=== PATIENT | male | born 2000 | race Caucasian/White ===

== ENCOUNTER 2020-08-05 11:08 | Outpatient (REF) | payer BC, SELFPAY | END 2020-08-05 11:09 | disposition home or self-care (01) | LOC: HO.HMGCLDS 11:08 | PROVIDERS: Visit Provider Internal Medicine | DX: Z20.828 Contact with and (suspected) exposure to other viral communicable diseases (principal) | CPT/HCPCS: C9803; U0003 ==

== ENCOUNTER 2020-08-10 08:27 | Outpatient (REF) | payer BC, SELFPAY | END 2020-08-10 08:28 | disposition home or self-care (01) | LOC: HO.HMGCLDS 08:27 | PROVIDERS: Visit Provider Internal Medicine | DX: Z20.828 Contact with and (suspected) exposure to other viral communicable diseases (principal) | CPT/HCPCS: C9803; U0003 ==

== ENCOUNTER 2024-03-26 08:51 | Outpatient (AMB) | payer OTHER, SELFPAY ==
--- NOTE | 2024-03-26 09:36 | MHC.OFFWIV ---
Intake Vital Signs 03/26/24 09:40 Height 5 ft 6 in Weight 181 lb BMI 29.2 BP 122/84 Blood Pressure Location Lt brachial Position Sitting Pulse 79 Pulse Source Pulse Oximeter Temp 98.3 F Temp Source Oral Pulse Oximetry (%) 99 Oxygen Delivery Method Room Air Intake Visit Reasons: Swollen lymph nodes Intake Note: pt here c/o ? swollen lymph nodes in groin. Alternating discomfort Patient Tobacco Use Status: Never used Tobacco Allergies amoxicillin [AMOXICILLIN] Allergy (Unknown, Verified 03/26/24 09:36) HIVES azithromycin [From ZITHROMAX] Allergy (Unknown, Verified 03/26/24 09:36) HIVES penicillin V Allergy (Unknown, Verified 03/26/24 09:36) Hives Penicillins [PENICILLINS] Allergy (Unknown, Verified 03/26/24 09:36) HIVES Do you need a note to return to daycare/school/sports/work: No HPI HPI Comments History of Present Illness Details Patient is a 24-year-old male with several complaints. First he has several swollen lymph nodes that he is concerned about. His 1st one is just beneath his ear on the left side of his neck, he states he just noticed it the other day. He states he believes he had 1 on the right lower neck that has since improved but he thinks he has 1 on the left lower neck but he can not find it right now. He also says he has lymph node swelling in his groin that he noticed about a month ago. He has a new sexual partner as of 3 months ago and states he did have some urinary symptoms about a month ago of increased urination. He never sought any medical treatment at that time and he states that was feeling a little bit better. However, he does not endorse some abdominal discomfort. He denies any unusual discharge from his penis, fevers or burning with urination. PFSH Social History Patient Tobacco Use Status: Never used Tobacco Review of Systems Const All systems reviewed & are unremarkable except as noted in HPI and below Physical Exam Vital Signs: Last Vital Signs Temp 98.3 F 03/26/24 09:40 Pulse 79 03/26/24 09:40 BP 122/84 03/26/24 09:40 Pulse Ox 99 03/26/24 09:40 Oxygen Delivery Method Room Air 03/26/24 09:40 BMI result Body Mass Index 29.2 Const General: cooperative, healthy appearing, comfortable, no acute distress and well developed Orientation/consciousness: patient oriented x3 Limitations: no limitations HEENT Head: Yes normal to inspection Eyes General: appearance normal, both eyes and all related structures Neck Neck: Yes normal visual inspection, Yes full ROM, Yes trachea midline and Yes supple Lymphatic: lymphadenopathy left postauricular Resp Effort & Inspection: normal respiratory effort and able to speak in complete sentences Male General Exam: Yes inguinal lymphadenopathy bilateral Skin General skin exam: no rashes or lesions noted Neuro General: patient oriented x3 Extrem General: Yes normal to inspection Results AMB Urinalysis, Automated UA Leukoctes 0 James/uL Last Edit by Renato Angulo CMA on 03/26/24 10:21 UA Nitrite Negative Last Edit by Renato Angulo CMA on 03/26/24 10:21 UA Urobilinogen 0.2 mg/dL Last Edit by Renato Angulo CMA on 03/26/24 10:21 UA Protein 0 mg/dL Last Edit by Renato Angulo CMA on 03/26/24 10:21 UA pH 6.0 Last Edit by Renato Angulo CMA on 03/26/24 10:21 UA Blood 0 Yohannes/uL Last Edit by Renato Angulo CMA on 03/26/24 10:21 UA Specific [place] 1.015 Last Edit by Renato Angulo CMA on 03/26/24 10:21 UA Ketone Last Edit by Renato Angulo CMA on 03/26/24 10:21 UA Bilirubin 0 mg/dL Last Edit by Renato Angulo CMA on 03/26/24 10:21 UA Glucose 0 mg/dL Last Edit by Renato Angulo CMA on 03/26/24 10:21 Results Reviewed Results Reviewed: Laboratory Last Values Urine pH (Auto) 6.0 03/26/24 10:18 Specific [place] (Auto) 1.015 03/26/24 10:18 Urine Protein (Auto) 0 mg/dL 03/26/24 10:18 Glucose (UA)(Auto) 0 mg/dL 03/26/24 10:18 Urine Blood (Auto) 0 Yohannes/uL 03/26/24 10:18 Urine Nitrite (Auto) Negative 03/26/24 10:18 Urine Bilirubin (Auto) 0 mg/dL 03/26/24 10:18 Urine Urobilinogen (Auto) 0.2 mg/dL 03/26/24 10:18 Leukocyte Esterase (Auto) 0 James/uL 03/26/24 10:18 Assessment & Plan Assessment & Plan (1) Abdominal discomfort: Code(s): R10.9 - Unspecified abdominal pain Plan: UA is negative, CT NG sent to lab. Explained to patient if those are positive, we will send a prescription to his pharmacy. Explained that he needs to abstain from sexual activity until he has finished the prescription and comes back for a 2nd test to show that he has cleared the disease and he should also have his partner tested and treated as well. (2) Increased frequency of urination: Code(s): R35.0 - Frequency of micturition Plan: UA negative for infection (3) Swollen lymph nodes: Code(s): R59.9 - Enlarged lymph nodes, unspecified Plan: Physical exam revealed bilateral inguinal lymphadenopathy as well as left-sided cervical lymphadenopathy. Sent CT NG PCR. Explained to patient that if he does have an infection either urinary tract infection or a sexually transmitted infection, the lymph node swelling should go down once the infection resolves. If it does not go down after a weeks, he should follow up with his PCP. If the lymph node swelling in his neck does not go down within the next week or 2, he should follow up with his PCP for an ultrasound ADELINE. Patient states he does have a PCP appointment in July, however he would need to be seen prior to July if the lymphadenopathy does not go away. Plan See above Orders: Orders CT NG by PCR Today R10.9 - Unspecified abdominal pain, R35.0 - Frequency of micturition, R59.9 - Enlarged lymph nodes, unspecified AMB Urinalysis Automated Today Z13.9 - Encounter for screening, unspecified Coding Level of Care Code Est Pt Level 4 (99085) Diagnoses Abdominal discomfort R10.9 Increased frequency of urination R35.0 Swollen lymph nodes R59.9
[2024-03-26 09:40] VITALS: BP 122/84; PULSE 79; TEMP 36.8; O2SAT 99; BMI 29.2
== END 2024-03-26 10:34 | disposition home or self-care (01) ==
PROVIDERS: Visit Provider Physician Assistant
DX: R10.9 Unspecified abdominal pain (principal); R35.0 Frequency of micturition; R59.9 Enlarged lymph nodes, unspecified; Z13.9 Encounter for screening, unspecified
CPT/HCPCS: 81003; 99214

== ENCOUNTER 2024-03-26 10:09 | Outpatient (REF) | payer OTHER, SELFPAY ==
[2024-03-26 16:22] LABS: CT PCR NOT DETECTED (Not Detect.); NG PCR NOT DETECTED (Not Detect.)
== END 2024-03-26 10:10 | disposition home or self-care (01) ==
LOC: HO.LAB 10:09
PROVIDERS: Visit Provider Physician Assistant
DX: R10.9 Unspecified abdominal pain (principal); R35.0 Frequency of micturition; R59.9 Enlarged lymph nodes, unspecified
CPT/HCPCS: 87491; 87591

== ENCOUNTER 2024-04-03 12:24 | Outpatient (AMB) | payer OTHER, SELFPAY ==
--- NOTE | 2024-04-03 12:41 | MHC.PC.OV ---
Vital Signs 04/03/24 12:42 Height 5 ft 6 in Weight 180 lb BMI 29.0 BP 108/68 Blood Pressure Location Lt brachial Position Sitting Pulse 71 Pulse Source Pulse Oximeter Pulse Oximetry (%) 98 Oxygen Delivery Method Room Air Intake Visit Reasons: Establish Care / Hospital discharge Intake Note: Patient here for HDF/establish care Allergies amoxicillin [AMOXICILLIN] Allergy (Unknown, Verified 04/03/24 13:08) HIVES azithromycin [From ZITHROMAX] Allergy (Unknown, Verified 04/03/24 13:08) HIVES penicillin V Allergy (Unknown, Verified 04/03/24 13:08) Hives Penicillins [PENICILLINS] Allergy (Unknown, Verified 04/03/24 13:08) HIVES Medication List - Last Reconciled 04/03/24 by MICHEAL Saeed methylphenidate HCl ER 18 mg PO QAM Tobacco use date assessed: 04/03/24 Dental Screening Dental Screen Date: 04/03/24 Did you have a dental visit in the last 12 months?: No Did you have a dental problem in the last 6 months where you did not have access to dental care?: No Was dental information given to patient?: Patient has dentist HPI HPI Comments History of Present Illness Details New patient visit today for hospital discharge follow up. Of note I did not have any of the hospital paperwork until after the visit. Previous PCP: [facility]; no records available Pharm: [facility] martha This is a 24-year-old male, with no significant medical history, who presented to [facility] on 04/01/2024 with abdominal pain, CT scan positive for acute appendicitis. He underwent a successful laparoscopic appendectomy on 04/02/2024. He was discharged home with oxycodone, Tylenol, ibuprofen and Colace. He had a CBC and BMP of which were within normal limits; specifically the CT scan states no enlarged lymph nodes in the pelvis. He also had a UA done which did show trace bacteria, otherwise unremarkable. He comes in today specifically to request syphilis and HIV testing. He reports that he was seen at the walk-in clinic at [facility] for chief complaints of adenopathy in his groin in his neck. At that time a urine was done which was negative as well as a urine for gonorrhea chlamydia. That was also negative. He denies any STD symptoms. When he went to the emergency room for the abdominal pain, there was a mention of meeting together syphilis and HIV workup. He has been perseverating on this with severe anxiety. He is in a new relationship, started dating a girl 3 months ago, she is now 2 months . He states she has not had her appointment yet. Be that as it may, he reports that she does not have any STD symptoms. He further denies he has no STD symptoms. He does not have sex with men. He does not use any IV drugs. Denies any high-risk exposures that would expose him to HIV. In regards to the lymphadenopathy, he reports that the lymph nodes in his groin have improved since the surgery, however continue. Reports that the lymph nodes in his neck have also improved. However he can continue to feel 1 on the left side of his neck, and 1 in the right supraclavicular area. Reports that they are soft, painless. Denies any fever, chills, constitutional symptoms. The only thing he is complaining of his grave anxiety related to the potential for HIV or syphilis certainly given the fact that he is going to become a father. Exam Awake alert, oriented, appears well, nontoxic No photophobia bilat Mucous membranes moist Neck full range of motion there was a very small deep posterior cervical lymph node on the left, and a barely palpable soft mobile lymph node right supraclavicular. Regular rate and rhythm Lung sounds clear to auscultation bilat Abdomen is soft, hypoactive bowel sounds, nontender, surgical incisions without drainage or erythema, open to air. Right inguinal area are very small shotty lymph nodes, no appreciable adenopathy on the left. exam deferred Severely anxious, shaking, restless, cooperative. Plan Check labs for HIV and syphilis today. Reassured. Also check a CBC. I do not think we need imaging of the neck lymph nodes at this time, the CT scan remarks specifically that there is no adenopathy. Therefore I do not think anything further needs to be done in regards to the inguinal adenopathy. This was likely reactive to the appendicitis. The patient does report that these are improving. I would like for him to come back in 1 week to establish care with his primary care and to further discuss the adenopathy, should this continue. He was advised to take NSAIDs to see if this would help relieve the adenopathy as well. If his testing comes back positive for syphilis or HIV, proper orders we will need to be placed at that time. At the close of this note the lab results are pending. This note is constructed using voice recognition software. While every effort has been made to ensure accuracy in business services manager, still errors may have been included Sometimes, these errors may affect the content or meaning of the given sentence . Total time spent caring for the patient today was 40 minutes. This includes time spent before the visit reviewing the chart, time spent during the visit, and time spent after the visit on documentation denies recent travel, fever, chills, urinary complaints PFSH Surgical History (Updated 04/03/24 @ 12:46 by MIHIR Jones) Hx of appendectomy Hx of hernia repair Social History Housing: House Patient Tobacco Use Status: Never used Tobacco e-Cigarette/Vaping Use: Former Use service: No Current occupational status: employed Current occupation: [employer] ([place]) Current occupational exposures/hazards: No Cognitive needs: No Hearing needs: No Vision needs: No Questionnaire PHQ-9 Over the last 2 weeks, how often have you been bothered by any of the following problems? 1. Little interest or pleasure in doing things: not at all 2. Feeling down, depressed, or hopeless: several days 3. Trouble falling or staying asleep, or sleeping too much: several days 4. Feeling tired or having little energy: several days 5. Poor appetite or overeating: more than half the days 6. Feeling bad about yourself - or that you are a failure or have let yourself or your family down: more than half the days 7. Trouble concentrating on things, such as reading the newspaper or watching television: several days 8. Moving or speaking so slowly that other people could have noticed. Or the opposite - being so fidgety or restless that you have been moving around a lot more than usual: more than half the days 9. Thoughts that you would be better off or of hurting yourself in some way: not at all Total score: 10 Depression Screening Interpretation: Positive Depression Screening Follow-up: Follow-up Visit Requested Depression Screening Done: Yes 96427 - PHQ-9 Billing: Yes Source: Developed by Drs. Billy Mckeon, Cynthia Scott Yap and colleagues, with an educational anish from [employer]. Thrive Questionnaire Date Thrive assessed: 04/03/24 I am a: Patient What is your living situation today?: I have a steady place to live Within the past 12 months, did the food you bought not last and you didn't have the money to get more?: Never true Within the past 12 months, did you worry whether your food would run out before you got money to buy more?: Never true Do you have trouble paying for medicines?: No Do you have trouble getting transportation to medical appointments?: No Do you have trouble paying your heating and electricity bill?: No Do you have trouble taking care of your child, family member or friend?: No Do you have trouble with day-to-day activities such as bathing, preparing meals, shopping, managing finances, etc.?: No Are you currently unemployed and looking for a job?: No Are you interested in more education?: No Please select the resources that you would like help with: None Currently or been in a relationship where the following occur: No concerns reported THRIVE Score: 0 AUDIT C Alcohol Use Questionnaire (AUDIT-C) 1. How often do you have a drink containing alcohol?: Monthly or less 2. How many drinks containing alcohol do you have on a typical day when you are drinking?: 7 to 9 3. How often do you have six or more drinks on one occasion?: Never Total Score: 4 Score Reviewed/Action Taken: Yes FRANTZ-7 AMB Questionnaire FRANTZ-7 Date FRANTZ - 7 assessed: 04/03/24 Feeling nervous, anxious, or on edge: 2 = More than half the days Not being able to stop or control worryin = More than half the days Worrying too much about different things: 2 = More than half the days Trouble relaxin = More than half the days Being so restless that it is hard to sit still: 1 = Several days Becoming easily annoyed or irritable: 0 = Not at all Feeling afraid as if something awful might happen: 3 = Nearly every day Total FRANTZ-7 score (0-4 normal; 5-9 mild; 10-14 moderate; 15-21 severe): 12 Source: Developed by Drs. Billy Mckeon, Scott Mota and colleagues, with an educational anish from [employer]. FRANTZ-7 Assessment Billing FRANTZ-7 Assessment Tool: FRANTZ-7 Assessment 50795 Physical exam (Primary Care) Vital Signs: Last Vital Signs Pulse 71 04/03/24 12:42 BP 108/68 04/03/24 12:42 Pulse Ox 98 04/03/24 12:42 Oxygen Delivery Method Room Air 04/03/24 12:42 BMI result Body Mass Index 29.0 Tobacco/Smoking Status: Tobacco use Status Tobacco use date assessed 04/03/24 04/03/24 12:48 Patient Tobacco Use Status Never used Tobacco 04/03/24 12:48 e-Cigarette/Vaping Use Former Use 04/03/24 12:48 PHQ-9: PHQ-9 Score PHQ-9: Total score 10 04/03/24 13:04 Depression Screening Interpretation: Positive Depression Screening Follow-up: Follow-up Visit Requested Thrive Assessment: Date of Thrive Assessment Date Thrive assessed 04/03/24 04/03/24 12:51 Currently or been in a relationship where the following occur: No concerns reported Assessment and Plan Assessment & Plan (1) Hospital discharge follow-up: Code(s): Z09 - Encounter for follow-up examination after completed treatment for conditions other than malignant neoplasm (2) Swollen lymph nodes: Code(s): R59.9 - Enlarged lymph nodes, unspecified (3) Encounter for screening examination for sexually transmitted disease: Code(s): Z11.3 - Encounter for screening for infections with a predominantly sexual mode of transmission (4) Situational mixed anxiety and depressive disorder: Code(s): F43.23 - Adjustment disorder with mixed anxiety and depressed mood Orders: Orders Complete Blood Count no Diff Today R59.9 - Enlarged lymph nodes, unspecified Syphilis Screen Today R59.9 - Enlarged lymph nodes, unspecified HIV Ab/Ag Today R59.9 - Enlarged lymph nodes, unspecified Coding Level of Care Code New Pt Level 4 (39565) Diagnoses Hospital discharge follow-up Z09 Swollen lymph nodes R59.9 Encounter for screening examination for sexually transmitted disease Z11.3 Situational mixed anxiety and depressive disorder F43.23 Additional Codes FRANTZ-7 Assessment Billing - FRANTZ-7 Assessment Tool: FRANTZ-7 Assessment [id number] ([id number])
[2024-04-03 12:42] VITALS: BP 108/68; PULSE 71; O2SAT 98; BMI 29.0
== END 2024-04-03 13:28 | disposition home or self-care (01) ==
PROVIDERS: PCP Physician Assistant; Visit Provider Nurse Practitioner Family
DX: R59.9 Enlarged lymph nodes, unspecified (principal); Z11.3 Encounter for screening for infections with a predominantly sexual mode of transmission; F43.23 Adjustment disorder with mixed anxiety and depressed mood; Z09 Encounter for follow-up examination after completed treatment for conditions other than malignant neoplasm
CPT/HCPCS: 99203

== ENCOUNTER 2024-04-03 13:24 | Outpatient (REF) | payer OTHER, SELFPAY ==
[2024-04-03 18:16] LABS: Hemoglobin 15.2 g/dl (14.0-18.0); Mean Corpuscular HGB Conc 33.8 g/dl (31.0-36.0); Mean Corpuscular Hemoglobin 27.6 pg (27.0-33.0); Mean Corpuscular Volume 81.7 fL (80.0-98.0); Mean Platelet Volume 10.2 fL (9.4-12.4); Platelet Count 264 X10*3/uL (160-400); Red Blood Count 5.51 X10*6/uL (4.60-5.80); Red Cell Distribution Width 12.4 % (11.0-16.0); White Blood Count 6.9 X10*3/uL (4.8-10.8)
[2024-04-06 08:11] LABS: Syphilis Screen Nonreactive (Nonreactive)
[2024-04-06 08:23] LABS: HIV AB/AG Nonreactive (Nonreactive); HIV Num 1 0.04 S/CO (0.00-0.99)
== END 2024-04-03 13:25 | disposition home or self-care (01) ==
LOC: HO.WFDLDS 13:24
PROVIDERS: Visit Provider Nurse Practitioner Family
DX: R59.9 Enlarged lymph nodes, unspecified (principal)
CPT/HCPCS: 36415; 85027; 86780; 87389

== ENCOUNTER 2024-04-21 12:26 | Outpatient (AMB) | payer OTHER, SELFPAY ==
--- NOTE | 2024-04-21 12:29 | MHC.PC.OV ---
Vital Signs 04/21/24 12:35 Height 5 ft 6 in Weight 181 lb 8 oz BMI 29.3 BP 110/80 Blood Pressure Location Lt brachial Position Sitting Respiration 16 Pulse 79 Pulse Source Pulse Oximeter Temp 97.6 F Temp Source Oral Pulse Oximetry (%) 95 Oxygen Delivery Method Room Air Intake Visit Reasons: Lymph node F/U and Est Care Intake Note: patient here to follow up on lymph node and establish care. Client Support Coordinator Required: No Allergies amoxicillin [AMOXICILLIN] Allergy (Unknown, Verified 04/21/24 12:40) HIVES azithromycin [From ZITHROMAX] Allergy (Unknown, Verified 04/21/24 12:40) HIVES penicillin V Allergy (Unknown, Verified 04/21/24 12:40) Hives Penicillins [PENICILLINS] Allergy (Unknown, Verified 04/21/24 12:40) HIVES Medication List - Last Reconciled 04/21/24 by Lilian Garcia CNP methylphenidate HCl ER 18 mg PO QAM Tobacco use date assessed: 04/21/24 Dental Screening Dental Screen Date: 04/21/24 Did you have a dental visit in the last 12 months?: No Did you have a dental problem in the last 6 months where you did not have access to dental care?: No Was dental information given to patient?: Patient has dentist HPI HPI Comments History of Present Illness Details New patient Prior PCP:? [facility] Last office visit/CPE: About 3 years Acute issue(s): ADHD He is on methylphenidate 18 mg daily. He is followed by a psychiatrist at [facility]. He notes that his ADHD symptoms are well controlled He notes that he generally eats healthy and sleeps well. He exercises routinely PMHx: ADHD SurgHx: Appendectomy on 04/02/2024, left inguinal hernia repair FHx: Dad: prostate cancer. Mom: thyroid disease. MGF: cerebral palsy. PGF: diabetes, [place] SocHx: Nonsmoker. Drinks 8-12 beers every 1-3 months at one sitting. No recreational drugs He notes that he is sexually active, in a monogamous relationship, and has not concerns for STDs He has not seen a dentist in several years but has an appointment this week [facility] Surgical History (Updated 04/03/24 @ 12:46 by MIHIR Jones) Hx of appendectomy Hx of hernia repair Social History Housing: House Patient Tobacco Use Status: Never used Tobacco e-Cigarette/Vaping Use: Former Use service: No Current occupational status: employed Current occupation: [employer] Current occupational exposures/hazards: No Cognitive needs: No Hearing needs: No Vision needs: No Questionnaire Thrive Questionnaire Date Thrive assessed: 04/03/24 AUDIT C Alcohol Use Questionnaire (AUDIT-C) 1. How often do you have a drink containing alcohol?: Monthly or less (every 3 months or so) 2. How many drinks containing alcohol do you have on a typical day when you are drinking?: 10 or more 3. How often do you have six or more drinks on one occasion?: Less than monthly (1 every 4 months) Total Score: 6 Score Reviewed/Action Taken: Yes FRANTZ-7 AMB Questionnaire FRANTZ-7 Date FRANTZ - 7 assessed: 04/03/24 Source: Developed by Drs. Billy Mckeon, Cynthia Goldsmith, Scott Doan and colleagues, with an educational anish from [employer]. Review of Systems Const Details: Denies chills, Denies fatigue, Denies fever(s), Denies headache(s) and Denies weakness HEENT Denies change in vision, Denies dizziness, Denies headache(s), Denies hearing loss, Denies nasal congestion, Denies sinus pain, Denies sinus pressure and Denies sore throat Card Denies chest pain, Denies lightheadedness, Denies dyspnea and Denies other (palpitations) Resp Denies cough, Denies dyspnea and Denies wheezing GI Denies abdominal pain, Denies melena, Denies hematochezia, Denies change in bowel habits, Denies dyspepsia and Denies nausea Denies hematuria and Denies dysuria Musc Denies abnormal gait, Denies myalgias, Denies arthralgias, Denies numbness and Denies tingling Skin/Breast Denies rash, Denies unusual bruising and Denies wounds Neuro Denies abnormal gait, Denies dizziness, Denies headache(s), Denies memory loss, Denies numbness, Denies Sensory deficit (Neuro), Denies tingling and Denies weakness Psych Denies anxiety, Denies depression and Denies memory loss Endo Denies cold intolerance, Denies fatigue, Denies heat intolerance, Denies polydipsia and Denies polyuria Storm/Lymph Denies easy bleeding and Denies easy bruising Aller/Immun Denies wheezing Physical exam (Primary Care) Tobacco/Smoking Status: Tobacco use Status Tobacco use date assessed 04/03/24 04/21/24 12:31 Patient Tobacco Use Status Never used Tobacco 04/21/24 12:31 e-Cigarette/Vaping Use Former Use 04/21/24 12:31 Thrive Assessment: Date of Thrive Assessment Date Thrive assessed 04/03/24 04/21/24 12:31 Const Other: General: no acute distress, well developed, alert and awake Nutritional Appearance: well nourished Orientation/consciousness: patient oriented x3 HENMT Head: Yes normocephalic and Yes atraumatic Ears: hearing grossly normal bilaterally and TM's normal bilaterally General nose exam: Normal external nose present and Normal nares present Mouth: Normal oral and palatal mucosa present and moist mucous membranes Teeth and gingiva: dentition normal Throat: Yes oropharynx normal Eyes Pupils: Equal, round and reactive pupils present and Pupil accommodation reflex normal EOM: EOMs intact bilaterally Neck Neck: Yes normal visual inspection, Yes no lymphadenopathy and Yes trachea midline Thyroid: Thyroid normal Carotids: no bruits Lymphatic: no lymphadenopathy noted Chest Chest palpation & inspection: normal inspection of the chest Resp Effort & Inspection: normal respiratory effort Auscultation: clear to auscultation bilaterally Cardio Rate: regular rate Rhythm: regular rhythm Heart sounds: S1 normal heart sound present, S2 normal heart sound present, no gallops, no murmurs and no rubs Bruits: no abdominal aortic bruits and no carotid bruits GI Palpation (GI): No Abdominal aortic bruit present, Soft to palpation, nontender, No hepatosplenomegaly present and No Rebound tenderness present Auscultation: normal bowel sounds General: Yes no CVA tenderness Back/Spine/Pelvis Back: no CVA tenderness Cervical Spine: cervical ROM normal and No Cervical spine tenderness Thoracic/Lumbar Spine: thoraco-lumbar ROM normal, No pain with thoraco-lumbar ROM, No thoracic spinal tenderness and No lumbar spinal tenderness Skin General: warm and dry. Normal skin color. Normal skin turgor Lesions: no lesions Rashes: no rashes Trauma: no lacerations or abrasions Wounds: no wounds Nails: normal Neuro General: patient oriented x3, gait normal and CN's II-XI intact bilaterally Cranial nerves: Yes Equal, round and reactive pupils present Cognition (Neuro): normal cognition Gait exam (Neuro): Normal gait present Motor exam (neuro): 5/5 motor strength present throughout Sensory Exam: No Sensory deficit (Neuro) Deep tendon reflexes (DTR's): Right patellar reflex intensity grade: 2+ and Left patellar reflex intensity grade: 2+ Extrem General: Yes normal to inspection, No edema and No calf tenderness Psych Appearance: grossly normal Affect: normal affect Attitude: cooperative Thought process: Normal thought process present Assessment and Plan Assessment & Plan (1) Normal physical examination, routine: Code(s): Z00. - Encounter for general adult medical examination without abnormal findings Plan: No significant physical restrictions or limitations noted Continue current treatment regimen Healthy diet and routine exercise encouraged Follow-up with dentist as planned for routine dental care Encouraged to limit or avoid alcohol consumption Advised to get lab work done in follow-up for a telehealth visit for labs review in 2-3 weeks Return with symptoms or concerns Verbalized understanding and agreed with the treatment plan (2) ADHD: Code(s): F90.9 - Attention-deficit hyperactivity disorder, unspecified type Plan: Controlled ADHD symptoms Methylphenidate as prescribed Follow-up with psychiatrist as planned Verbalized understanding and agreed with the treatment plan (3) Laboratory tests ordered as part of a complete physical exam (CPE): Code(s): Z00. - Encounter for general adult medical examination without abnormal findings Plan: Fasting labs ordered as part of a complete physical exam. Advised to fast for at least 10 hours before getting labs drawn. May drink water Verbalized understanding and agreed with treatment plan. Orders: Orders Comprehensive Sylvester. Panel Fast Today Z. - Encounter for general adult medical examination without abnormal findings TSH reflex Free T4 Today Z00. - Encounter for general adult medical examination without abnormal findings Lipid Panel Today Z00. - Encounter for general adult medical examination without abnormal findings Coding Level of Care Code Est Pt Prev Care 18-39y(11631) Diagnoses Normal physical examination, routine Z. ADHD F90.9 Laboratory tests ordered as part of a complete physical exam (CPE) Z.00
[2024-04-21 12:35] VITALS: BP 110/80; PULSE 79; RESP 16; TEMP 36.4; O2SAT 95; BMI 29.3
== END 2024-04-21 13:00 | disposition home or self-care (01) ==
PROVIDERS: PCP Physician Assistant; Visit Provider Nurse Practitioner Family
DX: Z00.00 Encounter for general adult medical examination without abnormal findings (principal); F90.9 Attention-deficit hyperactivity disorder, unspecified type
CPT/HCPCS: 99395

== ENCOUNTER 2024-05-05 11:37 | Outpatient (REF) | payer OTHER, SELFPAY ==
[2024-05-05 15:18] LABS: Alanine Aminotransferase 40 U/L (0-40); Albumin Level 4.6 g/dL (3.5-5.0); Alkaline Phosphatase 56 U/L (39-117); Anion Gap 11 (12-20); Aspartate Amino Transferase 22 U/L (5-37); Bilirubin Total 0.4 mg/dL (0.0-1.0); Blood Urea Nitrogen 16 mg/dL (9-16); Calcium 10.1 mg/dL (8.4-10.2); Carbon Dioxide 28 mmol/L (22-29); Chloride 103 mmol/L (96-108); Cholesterol 209 mg/dL (<200); Estimated Glomerular Filt Rate > 60; Glucose Fasting 95 mg/dL (60-99); HDL Cholesterol 56 mg/dL (>40); LDL Cholesterol Calculated 125 mg/dL (<100); Sodium 138 mmol/L (135-145); Total Protein 7.1 g/dL (6.5-8.0); Triglycerides 140 mg/dL (<150)
[2024-05-05 15:33] LABS: TSH reflex Free T4 1.58 uIU/mL (0.32-4.0)
== END 2024-05-05 11:38 | disposition home or self-care (01) ==
LOC: HO.WFDLDS 11:37
PROVIDERS: Visit Provider Nurse Practitioner Family
DX: Z00.00 Encounter for general adult medical examination without abnormal findings (principal)
CPT/HCPCS: 36415; 80053; 80061; 84443

== ENCOUNTER 2024-05-06 16:02 | Outpatient (AMB) | payer OTHER, SELFPAY ==
--- NOTE | 2024-05-06 15:33 | MHC.PC.OV ---
Intake Visit Reasons: Telehealth 2-3 wks labs Intake Note: patient here to follow up on labs Tax Expert Required: No Allergies amoxicillin [AMOXICILLIN] Allergy (Unknown, Verified 05/06/24 15:59) HIVES azithromycin [From ZITHROMAX] Allergy (Unknown, Verified 05/06/24 15:59) HIVES penicillin V Allergy (Unknown, Verified 05/06/24 15:59) Hives Penicillins [PENICILLINS] Allergy (Unknown, Verified 05/06/24 15:59) HIVES Tobacco use date assessed: 05/06/24 Dental Screening Dental Screen Date: 04/21/24 HPI HPI Comments History of Present Illness Details 24-year-old male presents for telehealth visit for review of recent lab results He offers no complaints and denies acute symptoms at this time [facility] Surgical History (Updated 04/03/24 @ 12:46 by Kamaljit Warren [facility]) Hx of appendectomy Hx of hernia repair Social History Housing: House Patient Tobacco Use Status: Never used Tobacco e-Cigarette/Vaping Use: Former Use service: No Current occupational status: employed Current occupation: [employer] Current occupational exposures/hazards: No Cognitive needs: No Hearing needs: No Vision needs: No Questionnaire Thrive Questionnaire Date Thrive assessed: 04/03/24 FRANTZ-7 AMB Questionnaire FRANTZ-7 Date FRANTZ - 7 assessed: 04/03/24 Source: Developed by Drs. Billy Mckeon, Cynthia Goldsmith, Scott Doan and colleagues, with an educational anish from [email or web address]. Review of Systems Const Details: Const Denies chills, Denies fatigue, Denies fever(s), Denies headache(s) and Denies weakness ENT Denies dizziness and Denies headache(s) Card Denies chest pain, Denies lightheadedness, Denies dyspnea and Denies other (Palpitations) Resp Denies cough, Denies dyspnea, Denies wheezing and Denies other ( shortness of breath) GI Denies abdominal pain, Denies melena, Denies hematochezia, Denies change in bowel habits, Denies dyspepsia and Denies nausea Denies hematuria and Denies dysuria Musc Denies abnormal gait, Denies myalgias, Denies arthralgias, Denies numbness and Denies tingling Skin/Breast Denies rash, Denies unusual bruising and Denies wounds Neuro Denies abnormal gait, Denies dizziness, Denies headache(s), Denies memory loss, Denies numbness, Denies Sensory deficit (Neuro), Denies tingling and Denies weakness Psych Denies anxiety, Denies depression, Denies memory loss Endo Denies cold intolerance, Denies fatigue, Denies heat intolerance, Denies polydipsia and Denies polyuria Aller/Immun Denies wheezing Physical exam (Primary Care) Tobacco/Smoking Status: Tobacco use Status Tobacco use date assessed 04/21/24 05/06/24 15:36 Patient Tobacco Use Status Never used Tobacco 05/06/24 15:36 e-Cigarette/Vaping Use Former Use 05/06/24 15:36 Thrive Assessment: Date of Thrive Assessment Date Thrive assessed 04/03/24 05/06/24 15:36 Const Other: Telehealth visit. No physical exam Telehealth Telehealth Telehealth Platform: Telephone Location of provider rendering services: practice address Location of patient: address on file Patient Identification confirmed using: Name, : Yes Telehealth method: voice only Patient verbally consented to treatment: Yes Patient verbally consented to billing insurance company: Yes Patient informed of any privacy concerns related to visit: Yes Assessment and Plan Assessment & Plan (1) Hypercholesterolemia: Code(s): E78.00 - Pure hypercholesterolemia, unspecified Plan: Recent lab results reviewed with the patient; unremarkable findings except for slightly elevated total cholesterol level, 209 Advised to limit foods high in saturated fat and avoid foods high in trans fat Routine exercise encouraged Advised to follow-up on or after 04/21/2025 for an extended physical exam or sooner with symptoms or concerns Verbalized understanding and agreed with the plan Coding Level of Care Code Tele Est Pt Level 2 (11070) Diagnoses Hypercholesterolemia E78.00 Time Spent (min) 10
== END 2024-05-06 17:05 ==
LOC: HO.HMGFM 16:02
PROVIDERS: PCP Physician Assistant; Visit Provider Nurse Practitioner Family
DX: E78.00 Pure hypercholesterolemia, unspecified (principal)
CPT/HCPCS: 99212

== ENCOUNTER 2024-05-26 08:08 | Outpatient (AMB) | payer OTHER, SELFPAY ==
[2024-05-26 09:02] VITALS: BP 116/80; PULSE 65; TEMP 36.8; O2SAT 99; BMI 30.7
--- NOTE | 2024-05-26 09:02 | MHC.OFFWIV ---
Intake Vital Signs 05/26/24 09:02 Height 5 ft 6 in Weight 190 lb BMI 30.7 BP 116/80 Blood Pressure Location Rt brachial Position Sitting Pulse 65 Pulse Source Pulse Oximeter Temp 98.2 F Temp Source Oral Pulse Oximetry (%) 99 Oxygen Delivery Method Room Air Intake Visit Reasons: EP-lt shoulder pain Intake Note: pt c/o LT shoulder pain. Started Saturday after fall while playing flag football Patient Tobacco Use Status: Never used Tobacco Allergies amoxicillin [AMOXICILLIN] Allergy (Unknown, Verified 05/26/24 09:13) HIVES azithromycin [From ZITHROMAX] Allergy (Unknown, Verified 05/26/24 09:13) HIVES penicillin V Allergy (Unknown, Verified 05/26/24 09:13) Hives Penicillins [PENICILLINS] Allergy (Unknown, Verified 05/26/24 09:13) HIVES Medication List - Last Reconciled 05/26/24 by Devonte Oneal MD No Known Home Meds Do you need a note to return to daycare/school/sports/work: Yes HPI EP-lt shoulder pain HPI Details 24-year-old Male presents to the office for a sick visit. Patient injured his left shoulder while playing flag football. He has pain on moving the arm at the left shoulder. [facility] Surgical History (Updated 04/03/24 @ 12:46 by MIHIR Jones) Hx of appendectomy Hx of hernia repair Social History Housing: House Patient Tobacco Use Status: Never used Tobacco e-Cigarette/Vaping Use: Former Use service: No Current occupational status: employed Current occupation: [employer] Current occupational exposures/hazards: No Cognitive needs: No Hearing needs: No Vision needs: No Physical Exam Vital Signs: Last Vital Signs Temp 98.2 F 05/26/24 09:02 Pulse 65 05/26/24 09:02 BP 116/80 05/26/24 09:02 Pulse Ox 99 05/26/24 09:02 Oxygen Delivery Method Room Air 05/26/24 09:02 BMI result Body Mass Index 30.7 Extrem Other: Left arm: No visible swelling or bruising. Range of motion: Abduction greater than 90 very painful. Full adduction. Full internal and external rotation. Assessment & Plan Assessment & Plan (1) Sprain of left shoulder: Code(s): S43.402A - Unspecified sprain of left shoulder joint, initial encounter Plan X ray images personally revd by me. No fracture or dislocation seen. Arm sling provided. Meloxicam ordered. Orders: Orders XR shoulder LT min 2V Today S43.402A - Unspecified sprain of left shoulder joint, initial encounter Coding Level of Care Code Est Pt Level 4 (37242) Diagnoses Sprain of left shoulder S43.402A
== END 2024-05-26 09:39 | disposition home or self-care (01) ==
PROVIDERS: PCP Physician Assistant; Visit Provider Internal Medicine
DX: S43.402A Unspecified sprain of left shoulder joint, initial encounter (principal)

== ENCOUNTER → 2024-05-26 08:08 | Outpatient (BNVA) | payer OTHER, SELFPAY | PROVIDERS: PCP Physician Assistant | DX: M25.512 Pain in left shoulder (principal) ==

== ENCOUNTER 2024-05-26 09:12 | Outpatient (REF) | payer OTHER, SELFPAY ==
--- NOTE | ~2024-05-26 | XR_ITS ---
EXAMINATION: XR SHOULDER, LEFT CLINICAL INFORMATION: Left shoulder sprain COMPARISON: None available. TECHNIQUE: AP external rotation, Grashey, scapular Y views of the left shoulder. FINDINGS: The bones and soft tissues are normal. No fracture. Glenohumeral and acromioclavicular alignment is anatomic with normal joint space. No abnormal soft tissue calcifications. XR/XR shoulder LT min 2V IMPRESSION: Unremarkable plain radiographs of the left shoulder. Electronically signed by: Mesfin Hayden MD 06/14/2024 07:00 PM EDT RP
== END 2024-05-26 09:13 | disposition home or self-care (01) ==
LOC: HO.HMGCX 09:12
PROVIDERS: PCP Nurse Practitioner Family; Visit Provider Internal Medicine
DX: S43.402A Unspecified sprain of left shoulder joint, initial encounter (principal); Y93.61 Activity, american tackle football; Y92.9 Unspecified place or not applicable; Y99.9 Unspecified external cause status
CPT/HCPCS: 73030

== ENCOUNTER 2024-06-03 10:19 | Outpatient (AMB) | payer OTHER, SELFPAY ==
--- NOTE | 2024-06-03 10:45 | A.OFFPC_ITS ---
Vital Signs 06/03/24 10:49 Height 5 ft 6 in Weight 190 lb 8 oz BMI 30.7 BP 100/76 Blood Pressure Location Lt brachial Position Sitting Respiration 16 Pulse 74 Pulse Source Pulse Oximeter Temp 98.3 F Temp Source Oral Pulse Oximetry (%) 96 Oxygen Delivery Method Room Air Intake Visit Reasons: brain fog Intake Note: Brain fog started last Saturday. Became confused on Saturday and was advised to go to ER. Symptoms continued and was advised to see primary care. Psychiatrist sandra prescribed Adderall and Zoloft, he hasn't started taking it yet. Allergies amoxicillin [AMOXICILLIN] Allergy (Unknown, Verified 06/03/24 10:52) HIVES azithromycin [From ZITHROMAX] Allergy (Unknown, Verified 06/03/24 10:52) HIVES penicillin V Allergy (Unknown, Verified 06/03/24 10:52) Hives Penicillins [PENICILLINS] Allergy (Unknown, Verified 06/03/24 10:52) HIVES Medication List - Last Reconciled 06/03/24 by Sharee Pacheco PA-C dextroamphetamine-amphetamine 20 mg (Adderall) 20 mg PO DAILY sertraline (Zoloft) 50 mg PO DAILY Tobacco use date assessed: 05/06/24 Dental Screening Dental Screen Date: 04/21/24 HPI brain fog HPI Details Patient is a 24-year-old male who presents today for a follow up regarding brain fog. He went to the emergency room on 05/31 with complaints brain fog and left back pain. He reported that he has had multiple changes in the past month including his ADHD medication, stopping nicotine and significantly cutting down on alcohol. For the past week or 2 he has felt like he has some brain fog. At the ER he did have labs, urine and a CT of the head which were all negative. He states that he feels like this is related to his sinuses. Some of his brain fog is worse when his eyes feel heavy and he has noticed that he has some sinus congestion and pressure and some postnasal drip. He wonders if he has allergies. Denies any fevers or chills. He did have negative COVID testing at the hospital. He trialed Benadryl once and felt like that helped. He states that he has not tried anything else for this. He has not had headache, vision changes, dizziness, abnormal gait, numbness, tingling or weakness. No change in appetite. He states that he looked this up on the Internet and was worried about his brain because of his previous years of playing football. There has been no recent trauma. He states he does not feel confused but more feels spacey. He states that he will forget where he put his keys in this all started abruptly last week on Saturday. By Saturday is when he noticed the congestion. He had an appointment this morning with his psychiatrist who recommends that he starts Adderall and Zoloft. He has not yet started this. Psych: Recently prescribed Adderall and Zoloft. Plan to start this today. Musculoskeletal: Reports ongoing left mid back pain for the past 2-1/2 months. No radiation down the legs. No known trauma. No urinary symptoms. He states the pain is only present if he pushes on it. He has not tried anything for it. [facility] Surgical History (Updated 04/03/24 @ 12:46 by MIHIR Jones) Hx of appendectomy Hx of hernia repair Social History Housing: House Patient Tobacco Use Status: Never used Tobacco e-Cigarette/Vaping Use: Former Use service: No Current occupational status: employed Current occupation: [employer] Current occupational exposures/hazards: No Cognitive needs: No Hearing needs: No Vision needs: No Questionnaire PHQ-9 Over the last 2 weeks, how often have you been bothered by any of the following problems? 1. Little interest or pleasure in doing things: not at all 2. Feeling down, depressed, or hopeless: several days 3. Trouble falling or staying asleep, or sleeping too much: not at all 4. Feeling tired or having little energy: more than half the days 5. Poor appetite or overeating: several days 6. Feeling bad about yourself - or that you are a failure or have let yourself or your family down: not at all 7. Trouble concentrating on things, such as reading the newspaper or watching television: nearly every day 8. Moving or speaking so slowly that other people could have noticed. Or the opposite - being so fidgety or restless that you have been moving around a lot more than usual: not at all 9. Thoughts that you would be better off or of hurting yourself in some way: not at all Total score: 7 Source: Developed by Drs. Billy Mckeon, Cynthia Goldsmith, Scott Doan and colleagues, with an educational anish from [employer]. Thrive Questionnaire Date Thrive assessed: 04/03/24 I am a: Patient What is your living situation today?: I have a steady place to live Within the past 12 months, did the food you bought not last and you didn't have the money to get more?: Never true Within the past 12 months, did you worry whether your food would run out before you got money to buy more?: Never true Do you have trouble paying for medicines?: No Do you have trouble getting transportation to medical appointments?: No Do you have trouble paying your heating and electricity bill?: No Do you have trouble taking care of your child, family member or friend?: No Do you have trouble with day-to-day activities such as bathing, preparing meals, shopping, managing finances, etc.?: No Are you currently unemployed and looking for a job?: No Are you interested in more education?: No Please select the resources that you would like help with: None Currently or been in a relationship where the following occur: No concerns reported THRIVE Score: 0 AUDIT C Alcohol Use Questionnaire (AUDIT-C) 1. How often do you have a drink containing alcohol?: Monthly or less 2. How many drinks containing alcohol do you have on a typical day when you are drinking?: 3 or 4 3. How often do you have six or more drinks on one occasion?: Less than monthly Total Score: 3 FRANTZ-7 AMB Questionnaire FRANTZ-7 Date FRANTZ - 7 assessed: 04/03/24 Feeling nervous, anxious, or on edge: 3 = Nearly every day Not being able to stop or control worryin = Nearly every day Worrying too much about different things: 2 = More than half the days Trouble relaxin = Several days Being so restless that it is hard to sit still: 1 = Several days Becoming easily annoyed or irritable: 0 = Not at all Feeling afraid as if something awful might happen: 2 = More than half the days Total FRANTZ-7 score (0-4 normal; 5-9 mild; 10-14 moderate; 15-21 severe): 12 Source: Developed by Drs. Billy Mckeon, Cynthia Goldsmith, Scott Doan and colleagues, with an educational anish from [employer]. Physical exam (Primary Care) Vital Signs: Last Vital Signs Temp 98.3 F 06/03/24 10:49 Pulse 74 06/03/24 10:49 Resp 16 06/03/24 10:49 BP 100/76 06/03/24 10:49 Pulse Ox 96 06/03/24 10:49 Oxygen Delivery Method Room Air 06/03/24 10:49 BMI result Body Mass Index 30.7 Tobacco/Smoking Status: Tobacco use Status Tobacco use date assessed 05/06/24 06/03/24 10:46 Patient Tobacco Use Status Never used Tobacco 06/03/24 10:46 e-Cigarette/Vaping Use Former Use 06/03/24 10:46 PHQ-9: PHQ-9 Score PHQ-9: Total score 7 06/03/24 10:46 Thrive Assessment: Date of Thrive Assessment Date Thrive assessed 04/03/24 06/03/24 10:46 Currently or been in a relationship where the following occur: No concerns reported Const Orientation/consciousness: patient oriented x3 HENMT Other: Nasal mucosa pale and edematous. Clear drainage noted. Maxillary sinus tenderness present. Ears: hearing grossly normal bilaterally Eyes General: appearance normal, both eyes and all related structures Eyelids: Yes eyelids normal Conjunctivae: conjunctivae normal Sclerae: sclerae normal Pupils: Equal, round and reactive pupils present Neck Thyroid: Thyroid normal Lymphatic: no lymphadenopathy noted Resp Auscultation: clear to auscultation bilaterally Cardio Rate: regular rate Rhythm: regular rhythm Heart sounds: S1 normal heart sound present and S2 normal heart sound present GI Inspection: Yes normal to inspection Palpation (GI): Soft to palpation and Other GI palpation findings present (nontender, no cva tenderness) Auscultation: normoactive bowel sounds Rectal Exam - Male: Yes deferred General: Yes no CVA tenderness Back/Spine/Pelvis Other: Tenderness to palpation over the left mid thoracic region. No palpable deformity. Full range of motion. Negative straight leg raise. Back: no CVA tenderness Skin General skin exam: no rashes or lesions noted Neuro General: patient oriented x3, gait normal, no focal motor deficits and CN's II- XI intact bilaterally Cranial nerves: Yes Equal, round and reactive pupils present Cognition (Neuro): normal cognition Gait exam (Neuro): Normal gait present Motor exam (neuro): 5/5 motor strength present throughout, no tremor noted and Normal motor muscle tone present throughout Sensory Exam: double simultaneous stimulation for sensation normal Coordination: efatup-tf-[id number] test normal, etap-uw-fpxd test normal and Romberg test negative Coding Level of Care Code Est Pt Level 4 (31894) Complex EM visit Add On G2211 Diagnoses Attention deficit hyperactivity disorder (ADHD), unspecified ADHD type F90.9 Attention deficit-hyperactivity disorder type: unspecified Brain fog R41.89 Sinus congestion R09.81 Anxiety and depression F41.9; F32.A Mid back pain on left side M54.9 Assessment & Plan Assessment & Plan (1) ADHD: Code(s): F90.9 - Attention-deficit hyperactivity disorder, unspecified type Category: Medical Qualifiers: Attention deficit-hyperactivity disorder type: unspecified Qualified Code(s): F90.9 - Attention-deficit hyperactivity disorder, unspecified type Plan: Following with Psychiatry and starting Adderall. Has taken this in the past with good results. (2) Brain fog: Code(s): R41.89 - Other symptoms and signs involving cognitive functions and awareness Category: Medical Plan: Appears neurologically intact today. CT reviewed from the ER and was normal. Labs ordered today. Discussed the importance of treating the mental health as well. (3) Sinus congestion: Code(s): R09.81 - Nasal congestion Category: Medical Plan: We will treat with Flonase and Zyrtec. (4) Anxiety and depression: Code(s): F41.9 - Anxiety disorder, unspecified; F32.A - Depression, unspecified Category: Medical Plan: We will be starting Zoloft. (5) Mid back pain on left side: Code(s): M54.9 - Dorsalgia, unspecified Category: Medical Plan: X-ray ordered. Plan Short term follow up to be reassessed or sooner if needed. Orders: Orders Comprehensive [place]. Panel Fast Today F32.A - Depression, unspecified, F41.9 - Anxiety disorder, unspecified, F90.9 - Attention-deficit hyperactivity disorder, unspecified type, R09.81 - Nasal congestion, R41.89 - Other symptoms and signs involving cognitive functions and awareness Magnesium Today F32.A - Depression, unspecified, F41.9 - Anxiety disorder, unspecified, F90.9 - Attention-deficit hyperactivity disorder, unspecified type, R09.81 - Nasal congestion, R41.89 - Other symptoms and signs involving cognitive functions and awareness Vitamin B12 and Folate Today F32.A - Depression, unspecified, F41.9 - Anxiety disorder, unspecified, F90.9 - Attention-deficit hyperactivity disorder, unspecified type, R09.81 - Nasal congestion, R41.89 - Other symptoms and signs involving cognitive functions and awareness Lyme IgG/IgM w/reflex to WB Today F32.A - Depression, unspecified, F41.9 - Anxiety disorder, unspecified, F90.9 - Attention-deficit hyperactivity disorder, unspecified type, R09.81 - Nasal congestion, R41.89 - Other symptoms and signs involving cognitive functions and awareness TSH reflex Free T4 Today F32.A - Depression, unspecified, F41.9 - Anxiety disorder, unspecified, F90.9 - Attention-deficit hyperactivity disorder, unspecified type, R09.81 - Nasal congestion, R41.89 - Other symptoms and signs involving cognitive functions and awareness Complete Blood Count Auto Diff Today F32.A - Depression, unspecified, F41.9 - Anxiety disorder, unspecified, F90.9 - Attention-deficit hyperactivity disorder, unspecified type, R09.81 - Nasal congestion, R41.89 - Other symptoms and signs involving cognitive functions and awareness XR thoracic spine 3V Today M54.9 - Dorsalgia, unspecified Medications: New cetirizine (Zyrtec) 10 mg PO DAILY PRN 90 tabs 0RF allergy symptoms fluticasone propionate 50 mcg/actuation (Flonase Allergy Relief) administer into each nostril 1 spray intranasal BID 16 grams 0RF
[2024-06-03 10:49] VITALS: BP 100/76; PULSE 74; RESP 16; TEMP 36.8; O2SAT 96; BMI 30.7
== END 2024-06-03 11:41 | disposition home or self-care (01) ==
PROVIDERS: PCP Physician Assistant; Visit Provider Physician Assistant
DX: F90.9 Attention-deficit hyperactivity disorder, unspecified type (principal); R41.89 Other symptoms and signs involving cognitive functions and awareness; R09.81 Nasal congestion; F41.9 Anxiety disorder, unspecified; F32.A Depression, unspecified; M54.9 Dorsalgia, unspecified

== ENCOUNTER → 2024-06-03 10:19 | Outpatient (BNVA) | payer OTHER, SELFPAY | PROVIDERS: PCP Physician Assistant; Visit Provider Physician Assistant ==

== ENCOUNTER 2024-06-03 12:05 | Outpatient (REF) | payer OTHER, SELFPAY ==
--- NOTE | ~2024-06-03 | XR_ITS ---
EXAMINATION: XR THORACIC SPINE CLINICAL INFORMATION: Back pain. COMPARISON: None available. TECHNIQUE: 3 views of the thoracic spine were obtained. FINDINGS: Mild multilevel degenerative changes in the thoracic spine. Possible diffuse demineralization. Mild superior and inferior endplate concavities at multiple thoracic vertebral bodies. Minimal levoscoliosis of the thoracic spine. XR/XR thoracic spine 3V IMPRESSION: 1. Mild multilevel degenerative changes in the thoracic spine. 2. Possible diffuse demineralization. Mild superior and inferior endplate concavities at multiple thoracic vertebral bodies. Correlation with clinical and laboratory exam recommended to determine further management. Electronically signed by: Samra Lindsey MD 06/30/2024 12:40 PM EDT
== END 2024-06-03 12:06 | disposition home or self-care (01) ==
LOC: HO.HMGCX 12:05
PROVIDERS: PCP Physician Assistant; Visit Provider Physician Assistant
DX: M54.9 Dorsalgia, unspecified (principal)
CPT/HCPCS: 72072

== ENCOUNTER 2024-06-08 08:08 | Outpatient (REF) | payer OTHER, SELFPAY ==
[2024-06-08 09:59] LABS: MANUAL DIFF FLAG NO
[2024-06-08 10:08] LABS: Basophils Percent Auto 0.6 % (0-2); Eosinophils Absolute Auto 0.1 X10*3/uL (0.0-0.4); Eosinophils Percent Auto 1.3 % (0-4); Hematocrit 43.6 % (42.0-52.0); Hemoglobin 14.8 g/dl (14.0-18.0); Imm Gran Abs Auto 0.03 X10*3/uL (0.00-0.03); Imm Gran Pct Auto 0.6 % (0.0-0.4); Lymphocytes Absolute Auto 2.4 X10*3/uL (1.2-4.9); Lymphocytes Percent Auto 43.7 % (20-40); Mean Corpuscular HGB Conc 33.9 g/dl (31.0-36.0); Mean Corpuscular Volume 79.6 fL (80.0-98.0); Mean Platelet Volume 10.4 fL (9.4-12.4); Monocytes Absolute Auto 0.3 X10*3/uL (0.1-1.2); Monocytes Percent Auto 6.3 % (2-11); Neutrophils Absolute Auto 2.6 x10*3/uL (2.0-8.3); Neutrophils Percent Auto 47.5 % (45-73); Platelet Count 218 X10*3/uL (160-400); Red Blood Count 5.48 X10*6/uL (4.60-5.80); Red Cell Distribution Width 12.9 % (11.0-16.0); White Blood Count 5.4 X10*3/uL (4.8-10.8)
[2024-06-08 10:32] LABS: Alanine Aminotransferase 28 U/L (0-40); Albumin Level 4.3 g/dL (3.5-5.0); Alkaline Phosphatase 63 U/L (39-117); Anion Gap 8 (12-20); Aspartate Amino Transferase 41 U/L (5-37); Bilirubin Total 0.7 mg/dL (0.0-1.0); Blood Urea Nitrogen 14 mg/dL (9-16); Calcium 9.4 mg/dL (8.4-10.2); Carbon Dioxide 28 mmol/L (22-29); Chloride 107 mmol/L (96-108); Estimated Glomerular Filt Rate > 60; Glucose Fasting 88 mg/dL (60-99); Magnesium 1.9 mg/dL (1.6-2.6); Potassium 3.4 mmol/L (3.3-5.1); Sodium 140 mmol/L (135-145); Total Protein 6.6 g/dL (6.5-8.0)
[2024-06-08 10:53] LABS: TSH reflex Free T4 1.59 uIU/mL (0.32-4.0)
[2024-06-08 11:05] LABS: Folate 15.5 ng/mL (> or = 4.0); Vitamin B12 490 pg/mL (200-900)
[2024-06-09 19:33] LABS: Lyme Abs Screen <0.90 index
== END 2024-06-08 08:09 | disposition home or self-care (01) ==
LOC: HO.HMGCLDS 08:08
PROVIDERS: PCP Physician Assistant; Visit Provider Physician Assistant
DX: R41.89 Other symptoms and signs involving cognitive functions and awareness (principal); F90.9 Attention-deficit hyperactivity disorder, unspecified type; R09.81 Nasal congestion; F41.9 Anxiety disorder, unspecified; F32.A Depression, unspecified
CPT/HCPCS: 36415; 80053; 82607; 82746; 83735; 84443; 85025; 86617; 86618

== ENCOUNTER 2024-06-24 08:01 | Outpatient (REF) | payer OTHER, SELFPAY ==
[2024-06-24 11:43] LABS: Alanine Aminotransferase 28 U/L (0-40); Albumin Level 4.4 g/dL (3.5-5.0); Alkaline Phosphatase 62 U/L (39-117); Aspartate Amino Transferase 25 U/L (5-37); Bilirubin Direct 0.1 mg/dL (0.0-0.5); Bilirubin Total 0.4 mg/dL (0.0-1.0); Total Protein 6.6 g/dL (6.5-8.0)
== END 2024-06-24 08:02 | disposition home or self-care (01) ==
LOC: HO.HMGCLDS 08:01
PROVIDERS: PCP Physician Assistant; Visit Provider Physician Assistant
DX: R79.89 Other specified abnormal findings of blood chemistry (principal)
CPT/HCPCS: 36415; 80076

== ENCOUNTER 2024-06-24 13:40 | Outpatient (AMB) | payer OTHER, SELFPAY ==
--- NOTE | 2024-06-24 13:43 | MHC.PC.OV ---
Vital Signs 06/24/24 13:46 Height 5 ft 6 in Weight 191 lb 6 oz BMI 30.9 BP 104/71 Blood Pressure Location Rt brachial Position Sitting Pulse 71 Pulse Source Pulse Oximeter Pulse Oximetry (%) 99 Oxygen Delivery Method Room Air Intake Visit Reasons: med changes Intake Note: Follow up. Stopped Zoloft on Saturday due to nausea and fatigue. Unable to start adderall 20mg was unable to find a pharmacy that has it in stock. Allergies amoxicillin [AMOXICILLIN] Allergy (Unknown, Verified 06/24/24 13:44) HIVES azithromycin [From ZITHROMAX] Allergy (Unknown, Verified 06/24/24 13:44) HIVES penicillin V Allergy (Unknown, Verified 06/24/24 13:44) Hives Penicillins [PENICILLINS] Allergy (Unknown, Verified 06/24/24 13:44) HIVES sertraline [From Zoloft] Adverse Reaction (Unknown, Verified 06/24/24 13:46) Nausea Medication List - Last Reconciled 06/24/24 by Sharee Pacheco PA-C cetirizine (Zyrtec) 10 mg PO DAILY PRN fluticasone propionate 50 mcg/actuation (Flonase Allergy Relief) 1 spray intranasal BID Tobacco use date assessed: 05/06/24 Dental Screening Dental Screen Date: 04/21/24 HPI med changes HPI Details Patient is a 24-year-old male who presents today for a follow up regarding brain fog. He states that the brain fog feels a bit better. It seems to come and go but he wonders if this is just him and how he is with his ADHD. He states being off of Adderall and nicotine at the same time he thinks made him feel a little funny but now he has gotten used to it. He tells me today that he would like celiac testing as he actually feels better when he avoids gluten. States that his mind feels clear. His body also does better when he avoids dairy. He states that dairy we will cause some eczema. He avoided dairy and gluten for 4 days and felt fantastic. He started eating again and did notice a felt somewhat foggy and had some more arthralgias. He did get the x-ray of his back however, it is not read yet. He states that when he was avoiding dairy and gluten the pain in his back actually resolved as well. [facility] Surgical History (Updated 04/03/24 @ 12:46 by MIHIR Jones) Hx of appendectomy Hx of hernia repair Social History Housing: House Patient Tobacco Use Status: Never used Tobacco e-Cigarette/Vaping Use: Former Use service: No Current occupational status: employed Current occupation: [employer] Current occupational exposures/hazards: No Cognitive needs: No Hearing needs: No Vision needs: No Questionnaire Thrive Questionnaire Date Thrive assessed: 06/03/24 I am a: Patient What is your living situation today?: I have a steady place to live Within the past 12 months, did the food you bought not last and you didn't have the money to get more?: Never true Within the past 12 months, did you worry whether your food would run out before you got money to buy more?: Never true Do you have trouble paying for medicines?: No Do you have trouble getting transportation to medical appointments?: No Do you have trouble paying your heating and electricity bill?: No Do you have trouble taking care of your child, family member or friend?: No Do you have trouble with day-to-day activities such as bathing, preparing meals, shopping, managing finances, etc.?: No Are you currently unemployed and looking for a job?: No Are you interested in more education?: No Please select the resources that you would like help with: None Currently or been in a relationship where the following occur: No concerns reported THRIVE Score: 0 FRANTZ-7 AMB Questionnaire FRANTZ-7 Date FRANTZ - 7 assessed: 04/03/24 Source: Developed by Drs. Billy Mckeon, Cynthia Goldsmith, Scott Doan and colleagues, with an educational anish from [employer]. Physical exam (Primary Care) Vital Signs: Last Vital Signs Pulse 71 06/24/24 13:46 BP 104/71 06/24/24 13:46 Pulse Ox 99 06/24/24 13:46 Oxygen Delivery Method Room Air 06/24/24 13:46 BMI result Body Mass Index 30.9 Tobacco/Smoking Status: Tobacco use Status Tobacco use date assessed 05/06/24 06/24/24 13:48 Patient Tobacco Use Status Never used Tobacco 06/24/24 13:48 e-Cigarette/Vaping Use Former Use 06/24/24 13:48 Thrive Assessment: Date of Thrive Assessment Date Thrive assessed 06/03/24 06/24/24 13:48 Currently or been in a relationship where the following occur: No concerns reported Const Orientation/consciousness: patient oriented x3 HENMT Ears: hearing grossly normal bilaterally Neck Thyroid: Thyroid normal Lymphatic: no lymphadenopathy noted Resp Auscultation: clear to auscultation bilaterally Cardio Rate: regular rate Rhythm: regular rhythm Heart sounds: S1 normal heart sound present and S2 normal heart sound present Skin General skin exam: no rashes or lesions noted Neuro General: patient oriented x3, gait normal and no focal motor deficits Coding Level of Care Code Est Pt Level 4 (13882) Complex EM visit Add On G2211 Diagnoses Attention deficit hyperactivity disorder (ADHD), unspecified ADHD type F90.9 Attention deficit-hyperactivity disorder type: unspecified Brain fog R41.89 Polyarthralgia M25.50 Assessment & Plan Assessment & Plan (1) ADHD: Code(s): F90.9 - Attention-deficit hyperactivity disorder, unspecified type Category: Medical Qualifiers: Attention deficit-hyperactivity disorder type: unspecified Qualified Code(s): F90.9 - Attention-deficit hyperactivity disorder, unspecified type Plan: Follows with psychiatry. Not currently on any medications and prefers this. (2) Brain fog: Code(s): R41.89 - Other symptoms and signs involving cognitive functions and awareness Category: Medical Plan: Overall has some improvement of this. (3) Polyarthralgia: Code(s): M25.50 - Pain in unspecified joint Category: Medical Plan: Labs ordered today. We will follow up pending test results. Advised to try an elimination diet for 4-6 weeks to see if he feels better. Reviewed the anti-inflammatory diet and he states that he is actually going to try this for a full 4-6 weeks and then follow up. Orders: Orders ROHAN Reflex Titer and Pattern Today F90.9 - Attention-deficit hyperactivity disorder, unspecified type, M25.50 - Pain in unspecified joint, R41.89 - Other symptoms and signs involving cognitive functions and awareness Rheumatoid Factor Today F90.9 - Attention-deficit hyperactivity disorder, unspecified type, M25.50 - Pain in unspecified joint, R41.89 - Other symptoms and signs involving cognitive functions and awareness Immunoglobulin A Today F90.9 - Attention-deficit hyperactivity disorder, unspecified type, M25.50 - Pain in unspecified joint, R41.89 - Other symptoms and signs involving cognitive functions and awareness Transglutaminase Ab IgG Today F90.9 - Attention-deficit hyperactivity disorder, unspecified type, M25.50 - Pain in unspecified joint, R41.89 - Other symptoms and signs involving cognitive functions and awareness Erythrocyte Sedimentation Rate Today F90.9 - Attention-deficit hyperactivity disorder, unspecified type, M25.50 - Pain in unspecified joint, R41.89 - Other symptoms and signs involving cognitive functions and awareness C Reactive Protein Today F90.9 - Attention-deficit hyperactivity disorder, unspecified type, M25.50 - Pain in unspecified joint, R41.89 - Other symptoms and signs involving cognitive functions and awareness Endomysial IgA rflx Titer Today F90.9 - Attention-deficit hyperactivity disorder, unspecified type, M25.50 - Pain in unspecified joint, R41.89 - Other symptoms and signs involving cognitive functions and awareness
[2024-06-24 13:46] VITALS: BP 104/71; PULSE 71; O2SAT 99; BMI 30.9
== END 2024-06-24 16:35 | disposition home or self-care (01) ==
PROVIDERS: PCP Physician Assistant; Visit Provider Physician Assistant
DX: F90.9 Attention-deficit hyperactivity disorder, unspecified type (principal); R41.89 Other symptoms and signs involving cognitive functions and awareness; M25.50 Pain in unspecified joint

== ENCOUNTER 2024-06-24 14:14 | Outpatient (REF) | payer OTHER, SELFPAY ==
[2024-06-24 17:47] LABS: Rheumatoid Factor < 13.0 IU/mL (<15.0)
[2024-06-24 17:48] LABS: C Reactive Protein 0.19 mg/dL (< or = 0.50)
[2024-06-24 18:19] LABS: Erythrocyte Sedimentation Rate 2 MM/HR (0-15)
[2024-06-25 22:47] LABS: Immunoglobulin A 133 mg/dL (47-310)
[2024-06-26 14:04] LABS: Anti Nuclear Antibody Screen NEGATIVE (NEGATIVE)
[2024-06-27 23:09] LABS: Endomysial IgA Antibody Negative (Negative)
[2024-06-29 14:02] LABS: Transglutaminase Ab IgG <1.0 U/mL
== END 2024-06-24 14:15 | disposition home or self-care (01) ==
LOC: HO.WFDLDS 14:14
PROVIDERS: Visit Provider Physician Assistant
DX: F90.9 Attention-deficit hyperactivity disorder, unspecified type (principal); R41.89 Other symptoms and signs involving cognitive functions and awareness; M25.50 Pain in unspecified joint
CPT/HCPCS: 36415; 82784; 85652; 86038; 86140; 86231; 86364; 86431

== ENCOUNTER 2024-07-15 10:50 | Outpatient (REF) | payer OTHER, SELFPAY ==
--- NOTE | ~2024-07-15 | MM_ITS ---
EXAMINATION: BONE DENSITOMETRY CLINICAL INDICATION: Encounter for screening for osteoporosis. COMPARISON: This is the patient's baseline examination. TECHNIQUE: Using a setObject DXA System (software version: 13.1) manufactured by [employer], dual-energy x-ray absorptiometry was performed of the lumbar spine and left hip. The images are of good technical quality. Based on ISCD (International Society for Clinical Densitometry) standards of reporting, Z-scores instead of T-scores are reported in this 24-year-old male. Summary results are attached. FINDINGS: AP SPINE L1-L4: BMD 1.328 g/cm2, T-score 0.9, Z-score 0.6, Z-score within expected range for age. LEFT FEMUR, NECK: BMD 1.190 g/cm2, T-score 0.9, Z-score 0.6, Z-score within expected range for age. LEFT FEMUR, TOTAL: BMD 1.077 g/cm2, T-score -0.2, Z-score -0.3, Z-score within expected range for age. IDENTIFIED RISK FACTORS: None listed. HISTORY OF FRACTURE: None listed. MEDICATIONS: Multivitamin, vitamin D. MM/XR DEXA axial skeleton IMPRESSION: 1. DIAGNOSIS: Based on the lowest Z-score value of -0.3 in the total femur, the patient's bone density is within the expected range for age. 2. 10-YEAR FRACTURE RISK PREDICTION, FRAX: Not performed in this patient outside the age range of 50-90 years. 3. Treatment Recommendations: NOF guidelines recommend consideration for treatment in postmenopausal women and men age 50 and older presenting with the following: -A hip or vertebral (clinical or morphometric) fracture. -T-score less than or equal to -2.5 at the femoral neck or spine after appropriate evaluation to exclude secondary causes. -Low bone mass at the hip or spine and a 10-year fracture probability by FRAX of greater than or equal to 3% for hip fracture or greater than or equal to 20% for major osteoporotic fracture based on the [place] adapted WHO algorithm. 4. Other Recommendations: All treatment decisions require clinical judgment and consideration of individual patient factors, including patient preferences, comorbidities, previous drug use, risk factors not captured in the FRAX model (e.g. frailty, falls, vitamin D deficiency, increased bone turnover, interval significant decline in bone density) and possible under or overestimation of fracture risk by FRAX. FUTURE SCAN RECOMMENDATION: People with diagnosed cases of osteoporosis or at high risk for fracture should have regular bone mineral density tests. For patients eligible for Medicare, routine testing is allowed once every 2 years. The testing frequency can be increased to one year for patients who have rapidly progressing disease, those who are receiving or discontinuing medical therapy to restore bone mass, or have additional risk factors. Electronically signed by: Mallory Castelan MD 07/16/2024 09:11 AM [facility]IVEROS
== END 2024-07-15 10:51 | disposition home or self-care (01) ==
LOC: HO.MAMMO 10:50
PROVIDERS: PCP Physician Assistant; Visit Provider Physician Assistant
DX: Z13.820 Encounter for screening for osteoporosis (principal); M85.80 Other specified disorders of bone density and structure, unspecified site
CPT/HCPCS: 77080

== ENCOUNTER 2024-07-23 09:44 | Outpatient (AMB) | payer OTHER, SELFPAY ==
--- NOTE | 2024-07-23 09:47 | MHC.OFFVIS ---
Vital Signs 07/23/24 09:48 Height 5 ft 6 in Weight 191 lb 8 oz BMI 30.9 BP 106/64 Blood Pressure Location Lt brachial Intake Visit Reasons: swollen lymp nodes. Allergies amoxicillin [AMOXICILLIN] Allergy (Unknown, Verified 06/24/24 13:44) HIVES azithromycin [From ZITHROMAX] Allergy (Unknown, Verified 06/24/24 13:44) HIVES penicillin V Allergy (Unknown, Verified 06/24/24 13:44) Hives Penicillins [PENICILLINS] Allergy (Unknown, Verified 06/24/24 13:44) HIVES sertraline [From Zoloft] Adverse Reaction (Unknown, Verified 06/24/24 13:46) Nausea Medication List - Last Reconciled 07/23/24 by Sharee Pacheco PA-C cetirizine (Zyrtec) 10 mg PO DAILY PRN fluticasone propionate 50 mcg/actuation 1 spray intranasal BID HPI HPI swollen lymp nodes.: Details: Pt is a 24 y/o male who presents today with complaints of enlarged groin and neck lymph nodes. He started with lymph node enlargement 3-4 months ago. They have not changed in size. They were a little tender initially. He went to an urgent care and was r/o for uti/sti. He states then a few weeks later he was dx with appendicitis. He states that he had an appendectomy. He did have a f/u after the appendectomy and the lymph nodes have persisted. No weight loss, fever or chills. He states he is worried about the lymph nodes that they have persisted. He has had a ct (for the appendicitis and no lymphadenopathy noted). [facility] Surgical History (Updated 04/03/24 @ 12:46 by Kamaljit Warren [facility]) Hx of appendectomy Hx of hernia repair Social History Housing: House Patient Tobacco Use Status: Never used Tobacco e-Cigarette/Vaping Use: Former Use service: No Current occupational status: employed Current occupation: [employer] Current occupational exposures/hazards: No Cognitive needs: No Hearing needs: No Vision needs: No Physical Exam Const Orientation/consciousness: patient oriented x3 HEENT Ears: hearing grossly normal bilaterally Neck Thyroid: Thyroid normal Lymphatic: lymphadenopathy (Left cervical lymphadenopathy noted) Resp Auscultation: clear to auscultation bilaterally Cardio Rate: regular rate Rhythm: regular rhythm Heart sounds: S1 normal heart sound present and S2 normal heart sound present GI Inspection: Yes normal to inspection Palpation (GI): Soft to palpation and Other GI palpation findings present (nontender, no cva tenderness) Auscultation: normoactive bowel sounds Rectal Exam - Male: Yes deferred General: Yes no CVA tenderness Male General Exam: Yes inguinal lymphadenopathy bilateral Back/Spine/Pelvis Back: no CVA tenderness Skin General skin exam: no rashes or lesions noted Neuro General: patient oriented x3, gait normal and no focal motor deficits Results Reviewed Results Reviewed: Laboratory Tests 06/08/24 06/24/24 06/24/24 08:10 08:05 14:17 WBC 5.4 RBC 5.48 Hgb 14.8 Hct 43.6 Plt Count 218 ESR 2 Sodium 140 Potassium 3.4 Chloride 107 Carbon Dioxide 28 Anion Gap 8 L BUN 14 Creatinine 0.86 Estimated GFR > 60 Fasting Glucose 88 Total Bilirubin 0.4 Direct Bilirubin 0.1 AST 25 ALT 28 Alkaline Phosphatase 62 Total Protein 6.6 Albumin 4.4 Vitamin B12 490 Folate 15.5 TSH 1.59 Lyme Screen IgG & IgM <0.90 Lyme Progressive Test TNP Assessment & Plan Assessment & Plan (1) Inguinal lymphadenopathy: Code(s): R59.0 - Localized enlarged lymph nodes Category: Medical Plan: Ultrasound and labs ordered. We will follow up pending test results. (2) Cervical lymphadenopathy: Code(s): R59.0 - Localized enlarged lymph nodes Category: Medical Plan: As above Orders: Orders US pelvic limited Today R59.0 - Localized enlarged lymph nodes US soft tiss head and/or neck Today R59.0 - Localized enlarged lymph nodes Complete Blood Count Auto Diff Today R59.0 - Localized enlarged lymph nodes Coding Level of Care Code Est Pt Level 4 (10848) Complex EM visit Add On G2211 Diagnoses Inguinal lymphadenopathy R59.0 Cervical lymphadenopathy R59.0
[2024-07-23 09:48] VITALS: BP 106/64; BMI 30.9
== END 2024-07-23 12:19 | disposition home or self-care (01) ==
PROVIDERS: PCP Physician Assistant; Visit Provider Physician Assistant
DX: R59.0 Localized enlarged lymph nodes (principal)

== ENCOUNTER → 2024-07-23 09:44 | Outpatient (BNVA) | payer OTHER, SELFPAY | PROVIDERS: PCP Physician Assistant; Visit Provider Physician Assistant ==

== ENCOUNTER 2024-07-23 10:25 | Outpatient (REF) | payer OTHER, SELFPAY ==
[2024-07-23 14:13] LABS: MANUAL DIFF FLAG NO
[2024-07-23 14:19] LABS: Basophils Percent Auto 0.5 % (0-2); Eosinophils Absolute Auto 0.1 X10*3/uL (0.0-0.4); Eosinophils Percent Auto 1.4 % (0-4); Hematocrit 44.2 % (42.0-52.0); Hemoglobin 15.1 g/dl (14.0-18.0); Imm Gran Abs Auto 0.01 X10*3/uL (0.00-0.03); Imm Gran Pct Auto 0.2 % (0.0-0.4); Lymphocytes Absolute Auto 2.5 X10*3/uL (1.2-4.9); Lymphocytes Percent Auto 45.3 % (20-40); Mean Corpuscular HGB Conc 34.2 g/dl (31.0-36.0); Mean Corpuscular Hemoglobin 26.8 pg (27.0-33.0); Mean Corpuscular Volume 78.5 fL (80.0-98.0); Mean Platelet Volume 10.2 fL (9.4-12.4); Monocytes Absolute Auto 0.3 X10*3/uL (0.1-1.2); Monocytes Percent Auto 4.9 % (2-11); Neutrophils Absolute Auto 2.7 x10*3/uL (2.0-8.3); Neutrophils Percent Auto 47.7 % (45-73); Platelet Count 220 X10*3/uL (160-400); Red Blood Count 5.63 X10*6/uL (4.60-5.80); Red Cell Distribution Width 12.5 % (11.0-16.0); White Blood Count 5.6 X10*3/uL (4.8-10.8)
== END 2024-07-23 10:26 | disposition home or self-care (01) ==
LOC: HO.WFDLDS 10:25
PROVIDERS: Visit Provider Physician Assistant
DX: R59.0 Localized enlarged lymph nodes (principal)
CPT/HCPCS: 36415; 85025

== ENCOUNTER 2024-07-29 13:56 | Outpatient (REF) | payer OTHER, SELFPAY ==
--- NOTE | ~2024-07-29 | US_ITS ---
EXAMINATION: US PELVIS, LIMITED/FOLLOW UP CLINICAL INFORMATION: Localized enlarged lymph nodes COMPARISON: None available. TECHNIQUE: High frequency linear ultrasound transducer was used to examine the areas of clinical concern. FINDINGS: A few small normal-appearing inguinal lymph nodes are noted bilaterally. Normal fatty ambrose are seen within all. Measurements in centimeters are reported below: Right: 1.2 x 0.4 x 1.4 1.3 x 0.7 x 0.8 1.2 x 0.6 x 0.7 Left: 1.2 x 0.4 x 1.4 1.0 x 0.6 x 1.0 US/US pelvic limited IMPRESSION: Normal-appearing inguinal lymph nodes. Electronically signed by: Nj Motta MD 08/04/2024 01:49 PM [facility]
== END 2024-07-29 13:57 | disposition home or self-care (01) ==
LOC: HO.HMGCX 13:56
PROVIDERS: PCP Physician Assistant; Visit Provider Physician Assistant
DX: R59.0 Localized enlarged lymph nodes (principal)
CPT/HCPCS: 76536; 76857

== ENCOUNTER → 2024-08-14 15:45 | Outpatient (BNVA) | payer OTHER, SELFPAY | PROVIDERS: PCP Physician Assistant; Visit Provider Physician Assistant | DX: H93.8X9 Other specified disorders of ear, unspecified ear (principal) | CPT/HCPCS: 99211 ==

== ENCOUNTER 2024-10-02 11:03 | Outpatient (AMB) | payer OTHER, SELFPAY ==
--- NOTE | 2024-10-02 11:19 | MHC.OFFVIS ---
Vital Signs 10/02/24 11:26 Height 5 ft 6 in Weight 195 lb BMI 31.5 BP 140/67 H Blood Pressure Location Lt brachial Position Sitting Pulse 73 Intake Visit Reasons: cervical lymphadenopathy Intake Note: Patient is seen in office for evaluation of cervical lymphadenopathy. Pt c/o: here due to swollen lymph nodes in the neck, notice it in 03/2024 has not seen increase in size, had ultrasound, pain in the area, and near the jaw in the left side, denies any other concerns us:07/29/24 Retort Setter Required: No Accompanied by: Self / Same As Patient Allergies amoxicillin [AMOXICILLIN] Allergy (Unknown, Verified 06/24/24 13:44) HIVES azithromycin [From ZITHROMAX] Allergy (Unknown, Verified 06/24/24 13:44) HIVES penicillin V Allergy (Unknown, Verified 06/24/24 13:44) Hives Penicillins [PENICILLINS] Allergy (Unknown, Verified 06/24/24 13:44) HIVES sertraline [From Zoloft] Adverse Reaction (Unknown, Verified 06/24/24 13:46) Nausea Medication List - Last Reconciled 10/02/24 by Yung Chen MD dextroamphetamine-amphetamine 20 mg ER (Adderall XR) 20 mg PO DAILY levocetirizine (Xyzal) 5 mg PO DAILY triamcinolone acetonide (Nasacort) 2 sprays intranasal DAILY HPI Comments Details: 24-year-old male patient presenting for evaluation of several enlarged cervical lymph nodes 1st noted by the patient several months ago. He denied any pain, skin change, redness or discharge associated with the palpable lumps. He also noted several groin lymph nodes which were also asymptomatic. He denies fever, chills, night sweats, weight loss, anorexia, or other generalized symptoms. He underwent evaluation with an ultrasound which confirmed a moderately enlarged lymph node without any suspicious findings noted. 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 [facility] Surgical History Hx of appendectomy Hx of hernia repair Social History Housing: House Patient Tobacco Use Status: Never used Tobacco e-Cigarette/Vaping Use: Former Use service: No Current occupational status: employed Current occupation: [employer] Current occupational exposures/hazards: No Cognitive needs: No Hearing needs: No Vision needs: No Review of Systems Const All systems reviewed & are unremarkable except as noted in HPI and below Physical Exam Vital Signs: Last Vital Signs Pulse 73 10/02/24 11:26 BP 140/67 H 10/02/24 11:26 BMI result Body Mass Index 31.5 Const General: no acute distress Nutritional Appearance: well nourished Orientation/consciousness: patient oriented x3 HEENT Head: Yes normocephalic and Yes atraumatic Ears: hearing grossly normal bilaterally Teeth and gingiva: dentition normal Neck Neck images: 1. Moderately enlarged, mobile lymph node in posterior triangle proximally 1.5 cm diameter, nontender to palpation 2. 1.5-2 cm palpable lymph node mobile and nontender, not as hard as the left lymph node. Resp Effort & Inspection: normal respiratory effort, no audible wheezes, no cough and no respiratory distress GI Inspection: Yes normal to inspection Skin General skin exam: no rashes or lesions noted Neuro General: patient oriented x3 Extrem General: Yes no clubbing, cyanosis or edema Assessment & Plan Assessment & Plan (1) Swollen lymph nodes: Code(s): R59.9 - Enlarged lymph nodes, unspecified Category: Medical Plan 24-year-old male patient presenting with several enlarged lymph nodes in the bilateral cervical regions. The nodes are fairly small but have persisted and remained relatively asymptomatic. He is experiencing no B symptoms. We discussed the options of observation, needle aspiration under ultrasound guidance, or excision as a short-stay surgery. After discussion of the relative risks and benefits of each, he wishes to proceed with a ultrasound-guided core biopsy. He is expecting his 1st child (daughter) in December so is hoping to avoid surgery prior to this. He will follow-up after the lymph node biopsy to discuss the results. Orders: Orders US biopsy lymph node Today R59.9 - Enlarged lymph nodes, unspecified Coding Level of Care Code New Pt Level 4 (89953) Diagnoses Swollen lymph nodes R59.9
[2024-10-02 11:26] VITALS: BP 140/67; PULSE 73; BMI 31.5
--- OUTSIDE RECORDS SUMMARY | 2024-10-02 11:58 | XMS_ITS | Encounter Summary ---
Author Organization [facility] Address [address] [place] [phone] Phone Care Team Providers Care Manager Marketing Communications Name Role Phone Keith Hester MD Primary Care Provider Encounter Details Date Type Department Care Team (Late st Contact Info) Description 04/18/2011 Conversion Encounter [facility] [address] [place] [address] Social History Tobacco Use Types Packs/Day Years Used Date Smoking Tobacco: Never Assessed Sex and Gender Information Value Date Recorded Sex Assigned at Male 04/17/2019 4:41 PM EDT Legal Sex Male 6:33 PM EDT Gender Identity Male 04/17/2019 4:41 PM EDT Sexual Orientation Straight 04/17/2019 4: 41 PM EDT documented as of this encounter Plan of Treatment Not on file documented as of this encounter Visit Diagnoses Not on filedocumented in this encounter Care Teams Manager Marketing Communications Relationship Specialty Start Date End Date Keith Hester MD [facility] [place] [address] PCP - General Pediatrics 10/21/18 documented as of this encounter
--- OUTSIDE RECORDS SUMMARY | 2024-10-02 11:58 | XMS_ITS | Clinical Summary ---
Author Organization [facility] Address [address] [place] [phone] Phone Care Team Providers Care Forge Tender Name Role Phone Keith Hester MD Primary Care Provider Allergies Active Allergy Reactions Criticality Noted Date Comments Amoxicillin Azithromycin Penicillins Medications fluticasone 50 MCG/ACT nasal spray Administer 50 mcg into affected nostril(s). 6 Active lisdexamfetamine (Vyvanse) 20 MG capsuleIndication s:Attention deficit disorder with hyperactivity Take 1 capsule (20 mg total) by mouth every morning. 30 capsule 2 Active Active Problems Problem Noted Date Diagnosed Date Major depressive disorder 01/04/2020 Assessment & Plan (12/20/2021 3:47 PM EDT): He states he is doing better now with mood and anxiety. He has actually been feeling better with getting back to work recently. Assessment & Plan (04/22/2021 11:48 AM EDT): History consistent with depression affecting ability to work. Will start with Celexa 20mg daily. Follow up in 4 weeks. Assessment & Plan (12/14/2020 6:13 PM EDT): Will start up vyvanse today to help with focus at work. Follow up in 2 weeks to see how this is going and consider starting anti-depressant medication at that time. Assessment & Plan (04/20/2020 5:49 PM EDT): He has symptoms of depression and is looking for a medication currently to help with this as he finds it very hard to get out of bed and get through his day. He admits to heavy use of nicotine (vaping) to help get through his day. He has a history of significant alcohol use and states that he does use alcohol less than once a month now. He uses marijuana from time to time. He is currently being treated with vyvanse for ADHD. Reviewed [facility] record and no opioids prescribed to him in the last two years. With the multiple things that he is currently using I would want him to see a psychiatric medication provider to evaluate and manage this depression concern. Assessment & Plan (01/18/2020 4:15 PM EDT): He is doing better with more activity outside. Recommended to continue with physical activity. Discussed trying to mix up his routine some to keep it fresh for himself. Assessment & Plan (01/04/2020 5:18 PM EDT): Jaiden describes that he is at a loss for things to do currently. He had an outlet in playing arena football but this has fallen through. He was interested in the just to have a new start, but no other strong interest. Goal to get outside for exercise at least 4 times a week as physical exercise is something that he has not been getting as much recently with the pandemic. 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 Starting on the vyvanse for his ADHD might help him with this. Discussed the possibility of medication for depression but wanted to start with the above steps before doing that. Follow up in 2 weeks to see how he is doing. Discussed things to call back in about or seek medical attention such as increasing sadness or suicidal ideation. Nicotine dependence with current use 04/18/2019 Overview (04/20/2020): 04/2019 - Vaping regularly. Going through a nicotine pod every 3-4 days. Not interested in cutting back. 04/2020 - Vaping nicotine through out the day just to get through the day. Not interested in cutting back particularly during the pandemic. Assessment & Plan (04/22/2021 11:48 AM EDT): Continues with nicotine use. Not interested in cutting back currently. Assessment & Plan (04/20/2020 5:41 PM EDT): Vaping nicotine through out the day just to get through the day. Not interested in cutting back particularly during the pandemic. Overweight 04/11/2015 Overview (04/16/2018): Overweight (278.02) Onset: 04/11/2015 Added by: Keith Hester Assessment & Plan (04/22/2021 11:47 AM EDT): Weight has been coming down. This is great. Continue with regular gym work. Assessment & Plan (04/20/2020 5:42 PM EDT): BMI has been stable. He is working out regularly and watching his diet which is great. Encouraged him to continue with these things. Assessment & Plan (11/04/2019 4:27 PM EST): Weight has come down. He is now playing arena football. Assessment & Plan (04/18/2019 8:10 AM EDT): BMI over 25 and more so over 30 places patient at increased risk for development of diabetes, cardiovascular disease and kidney disease. Will screen for cholesterol, diabetes and elevated liver transaminases. Assessment & Plan (04/16/2018 5:10 PM EDT): Screed for cholesterol, blood sugar and liver enzymes three years ago and normal. Attention deficit disorder with hyperactivity Overview (11/04/2019): ADHD (314.01) Onset: 05/30/2011 Added by: Keith Hester Plan: Vyvanse 20mg on work days. Updated 11/04/2019. Assessment & Plan (12/20/2021 3:48 PM EDT): Starting back with vyvanse to help with focus and attention at work. Plan to transition to adult provider by the fall. Assessment & Plan (04/22/2021 11:46 AM EDT): Continue with vyvanse 20mg daily. This has been helping with his focus and he notices when he does not take this in the morning. Assessment & Plan (12/14/2020 6:11 PM EDT): Plan to start back on Vyvanse 20mg. Assessment & Plan (04/20/2020 5:40 PM EDT): Continue with vyvanse to help with attention. Assessment & Plan (01/18/2020 4:14 PM EDT): Doing better with vyvanse. Continue with this medication regularly. Follow up at [facility] in April. Assessment & Plan (01/04/2020 5:13 PM EDT): Will start back up on vyvanse currently. He had been off for a month or more as he was trying to clear out to join the . He feels that he functions better on vyvanse. Assessment & Plan (11/04/2019 4:25 PM EST): Doing well with vyvnase 20mg on work days. Plan to continue with vyvnase. Assessment & Plan (04/18/2019 8:13 AM EDT): Continue with vyvanse. Follow up in 4 months to check on benefit of this medication. Assessment & Plan (12/03/2018 5:01 PM EDT): Continue with vyvance 20mg daily. This is covering full work day. Follow up in April at [facility]. Assessment & Plan (10/22/2018 4:38 PM EST): Increasing Vyvanse to 20mg daily to help cover the full work day. Follow up in 6 weeks. Assessment & Plan (09/30/2018 3:06 PM EST): Trial of vyvanse to help with focus at work. Prior diagnosis of ADHD. Follow up in 3 weeks to check if this is helping. Assessment & Plan (04/16/2018 6:28 PM EDT): Trouble with focus at work. This may be relating to dissatisfaction with work and wondering if this is the right job for him. Will start on vyvanse as adderall not preferred by insurance after checking formulary online. Follow up in 3 weeks. Resolved Problems Problem Noted Date Diagnosed Date Resolved Date Nondisplaced fracture of right fibula 06/21/2021 12/20/2021 Assessment & Plan (06/21/2021 12:42 PM EDT): DOS 05/11/21 Provider: Jose Connolly PA-C ?? Cc: right ankle pain ?? Xrays ordered ?? Diagnosis: Ceballos C distal fibular fx ?? Plan: -surgery to repair w Dr. Au Alcohol use 04/18/2019 04/22/2021 Overview (04/20/2020): 04/2019 - Drinking to intoxication per patient at least once a week. Does not see this as a problem currently. 04/2020 - Continues to drink on some weekends. Chronic pain of right knee 04/18/2019 0 11/04/2019 Overview (04/18/2019): 04/2019 - Complaint of regular knee pain that is stopping him from playing sports. Referred to ortho. Assessment & Plan (11/04/2019 4:26 PM EST): No right knee pain currently. Assessment & Plan (04/18/2019 8:12 AM EDT): Concern for possible meniscal injury with exam. Will refer to ortho for further evaluation and management. 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 Assessment & Plan (11/04/2019 4:27 PM EST): No recent issues. Will follow forward with him playing arena football. Assessment & Plan (04/18/2019 8:10 AM EDT): Intermittent sciatica. Not currently an issue. Assessment & Plan (04/16/2018 4:54 PM EDT): Follow back up with Dr. Owesn at [facility] concerning low back pain (L5- S1 nerve compression). Last seen 04/2017. Other acne 04/11/2015 04/18/2019 Overview (04/16/2018): Acne vulgaris (706.1) Onset: 04/11/2015 Added by: Keith Hester Other specified hypertrophic and atrophic condition of skin 04/08/2014 04/18/2019 Overview (04/16/2018): Dry skin (701.8) Onset: 04/08/2014 Added by: Keith Hester Immunizations Name Administration Dates Next Due DTaP 5 03/25/2003, 0,1998,07/18,1998 HPV Vaccine 9 Valent 04/17/2019,04/13/2016,04/11 Hep A, ped/adol 04/13/2016,04/11/2015 Hep B, ped/adol 1998,1998,1998 Hib (PRP-T) 06/02/1999, 9,1998,05/03 IPV 03/25/2003, 9,1998,05/03 Influenza, injectable, trivalent 09/19/2012 Influenza, injectable, triva lent, preservative free 05/30/2011 MMR 03/27/2002,06/02/1999 Meningococcal Conj (Menactra) MCV4P 04/13/2016,0 05/30/2011 Tdap 04/21/2021,05/19/2010 Varicella 03/02/1999 Family History Medical History Relation Name Comments Hyperlipidemia Father karlos Anemia Mother madelyn Hypotension Mother madelyn Hypothyroidism Mother madelyn Relation Name Status Comments Father karlos Alive Mother madelyn Alive Social History Tobacco Use Types Packs/Day Years Used Date Smoking Tobacco: Never Smokeless Tobacco: Current Comments:occasional use Alcohol Use Standard Drinks/Week Comments Yes 7 (1 standard drink = 0.6 oz pure alcohol) 2-3 times per month, 7-10 beers for an evening. Drinks with friends. Hunger/Food Answer Date Recorded In the last 12 months, did y ou or your family ever eat less than you felt you should because there wasn't enough money for food? No 04/21/2021 Stable Housing Answer Date Recorded Are you worried that in the next 2 months you may not have stable housing? No 04/21/2021 Transportation Concerns Answer Date Rec orded In the last 12 months, have you or your family ever had to go without healthcare because you didn't have a way to get there? No 04/21/2021 Hazards in Home Answer Date Recorded Think about the place you li ve. Do you have problems with any of the following? Pests (mice or roaches), mold, no/not working smoke detectors, water leaks, no window guards. No 2020 Financing Utilities Answer Date Recorde d In the last 12 months, has t he electric, gas, oil, or water company threatened to shut off your services in your home? No 04/21/2021 Safety at Home Answer Date Recorded Are you or your family worried about feeling saf e in your home? No 04/21/2021 Outside Support Answer Date Recorded Do you feel that you need mo re support from other people or programs to help you care for yourself or your family? No 04/21/2021 Understanding Health Concerns Answer Da te Recorded Do you need help understandi ng your or your child's healthcare needs (diagnosis, medications, plan, etc.)? No 04/21/2021 Financing Health Concerns Answer Date R ecorded In the last 12 months, was t here a time when your child needed to see a doctor or get medications or supplies but could not because of cost? No 04/21/2021 Missing School or Work Answer Date Usman rded Did you or your child miss s chool or work because of a health problem that could have been avoided? No 04/21/2021 Sex and Gender Information Value Date Recorded Sex Assigned at Male 04/17/2019 4:41 PM EDT Legal Sex Male 6:33 PM EDT Gender Identity Male 04/17/2019 4:41 PM EDT Sexual Orientation Straight 04/17/2019 4: 41 PM EDT Last Filed Vital Signs Vital Sign Reading Time Taken Comments Blood Pressure 108/78 12/20/2021 3:18 PM EDT Pulse 73 04/21/2021 4:12 PM EDT Temperature 36.6 ??C (97.8 ??F) 12/20/2021 3:18 PM ED T Respiratory Rate - - Oxygen Saturation - - Inhaled Oxygen Concentration - - Weight 93.9 kg (207 lb 1.6 oz) 12/20/2021 3:18 P M EDT Height 167 cm (5' 5.75 ) 12/20/2021 3:18 PM EDT Body Mass Index 33.68 12/20/2021 3:18 PM EDT Plan of Treatment Health Maintenance Due Date Last Done Comments Varicella Vaccines (1 of 2 - 13+ 2-dose series) 2011 03/02/1999 Influenza Vaccines (#1) 2024 09/19/2012, 05/30 COVID-19 Vaccine ( season) 2024 10/03/2021, 09/05/2021 DTaP,Tdap,and Td Vaccines (8 - Td or Tdap) 04/21/2031 04/21/2021, 05/19/2010, 03/25/2003, Additional history exists Hepatitis B Vaccines Completed 1998, 1998, 1998 HIB Vaccines Completed 06/02/1999, 09/1998, 1998, Additional history exists MMR Vaccines Completed 03/27/2002, 06/02/1999 IPV Vaccines Completed 03/25/2003, 09/1998, 1998, Additional history exists Hepatitis A Vaccines Completed 04/13/2016, 04/11/20 15 Meningococcal Vaccine Completed 04/13/2016, 011 HPV Vaccines Completed 04/17/2019, 04/02, 04/11/2015 Men B Vaccine Aged Out No longer elig ible based on patient's age to complete this topic Pneumococcal Vaccine Aged Out No long er eligible based on patient's age to complete this topic Insurance [place] [id number] [employer]AL Care Teams Forge Tender Relationship Specialty Start Date End Date Keith Hester MD [address] [place] [address] PCP - General Pediatrics 10/21/18
== END 2024-10-02 11:47 | disposition home or self-care (01) ==
PROVIDERS: PCP Physician Assistant; Visit Provider Surgery
DX: R59.9 Enlarged lymph nodes, unspecified (principal)
CPT/HCPCS: 99204

== ENCOUNTER → 2024-10-02 11:03 | Outpatient (BNVA) | payer OTHER, SELFPAY | PROVIDERS: PCP Physician Assistant; Visit Provider Surgery ==

== ENCOUNTER 2024-10-23 12:24 | Outpatient (REF) | payer OTHER, SELFPAY ==
--- NOTE | ~2024-10-23 | US_ITS ---
ULTRASOUND-GUIDED RIGHT CERVICAL/CLAVICULAR LYMPH NODE FINE-NEEDLE ASPIRATION INDICATION: Persistent palpable right cervical lymph node PROCEDURE: Informed consent was obtained from the patient prior to the procedure. During this process, the procedure and potential alternatives were explained, along with the intended outcome and benefits. The risks of the procedure, as well as the risks of not doing the procedure, were discussed. The patient was given the opportunity to ask questions regarding the procedure and appeared competent to make medical decisions. A signed consent form which documents this discussion was placed in the medical record. A timeout was performed in the room. The patient was placed in a supine position with the neck extended. The right side of the neck was prepped and draped in routine sterile fashion. 1% lidocaine was used as anesthetic. Under real-time ultrasound guidance, a 25-gauge needle was placed into the right cervical the and an aspiration was performed. A total of 4 aspirations were performed. The specimens were sent for cytology and flow cytometry. Postprocedure images showed no hematoma. A Band-Aid was applied to the access site. The patient tolerated the procedure well with no immediate complications. Permanent ultrasound images were archived to the procedure. US/US biopsy lymph node IMPRESSION: Ultrasound-guided right cervical lymph node fine-needle aspiration This procedure was performed by Beny Early PA-C, and supervised by Dr. Denis Electronically signed by: Tera Denis MD 10/23/2024 04:20 PM [facility]
--- OUTSIDE RECORDS SUMMARY | 2024-10-23 13:05 | XMS_ITS | Encounter Summary ---
Author Organization [facility] Address [address] [place] [phone] Phone Care Team Providers Care Track Surfacing Machine Operator Name Role Phone Keith Hester MD Primary Care Provider Encounter Details Date Type Department Care Team (Late st Contact Info) Description 04/18/2011 Conversion Encounter [facility] [address] [place] [address] Social History Tobacco Use Types Packs/Day Years [...] on filedocumented in this encounter Care Teams Track Surfacing Machine Operator Relationship Specialty Start Date End Date Keith Hester MD [facility] [place] [address] PCP - General Pediatrics 10/21/18 documented as of this encounter
--- OUTSIDE RECORDS SUMMARY | 2024-10-23 13:05 | XMS_ITS | Clinical Summary ---
Author Organization [facility] Address [address] [place] [phone] Phone Care Team Providers Care Senior Geotechnical Engineer Name Role Phone Keith Hester MD Primary [...] with this medication regularly. Follow up at [facility] in April. Assessment & Plan (01/04/2020 [...] work day. Follow up in April at [facility]. Assessment & Plan (10/22/2018 4:38 PM [...] PM EDT): Follow back up with Dr. Owens at [facility] concerning low back pain (L5- S1 nerve compression). Last seen 04/2017. Other acne 04/11/2015 04/18/2019 Overview (04/16/2018): Acne vulgaris (706.1) Onset: 04/11/2015 Added by: Keith Hester Other specified hypertrophic and atrophic condition of skin 04/08/2014 04/18/2019 Overview (04/16/2018): Dry skin (701.8) Onset: 04/08/2014 Added by: Keith Hester Immunizations Immunization Administration Dates Next Due DTaP 5 03/25/2003, [...] patient's age to complete this topic [place] [address] FEDERAL Care Teams Senior Geotechnical Engineer Relationship Specialty Start Date End Date Keith Hester MD [address] [place] [address] PCP - General Pediatrics 10/21/18
[2024-10-23] MEDS: Lidocaine HCl 1 % MPF 5 ML VIAL SUBCUT (14:04)
== END 2024-10-23 12:25 | disposition home or self-care (01) ==
LOC: HO.US 12:24
PROVIDERS: Pathology Anatomic Pathology & Clinical Pathology; PCP Physician Assistant; Visit Provider Surgery
DX: R59.9 Enlarged lymph nodes, unspecified (principal)
CPT/HCPCS: 38505; 76942; 88112; 88173; 88184; 88185; 88305; J2003

== ENCOUNTER → 2024-10-23 12:26 | Outpatient (BNV) | payer OTHER, SELFPAY | PROVIDERS: PCP Physician Assistant; Visit Provider Physician Assistant Surgical | DX: R59.0 Localized enlarged lymph nodes (principal) | CPT/HCPCS: 38505; 76942 ==

== ENCOUNTER 2024-11-19 13:33 | Outpatient (AMB) | payer OTHER, SELFPAY ==
--- NOTE | 2024-11-19 13:36 | MHC.OFFVIS ---
Vital Signs 11/19/24 13:39 Height 5 ft 6 in Weight 194 lb 14.218 oz BMI 31.5 Respiration 16 Pulse 72 Intake Visit Reasons: S/P US biopsy lymph nodes 10/23 Intake Note: Patient is seen in office for ultrasound biopsy results for lymph nodes. Pt c/o: no changes, here for results 10/23/24 Sewing Machine Operator Floorperson Required: No Accompanied by: Self / Same As Patient Allergies amoxicillin [AMOXICILLIN] Allergy (Unknown, Verified 11/19/24 13:39) HIVES azithromycin [From ZITHROMAX] Allergy (Unknown, Verified 11/19/24 13:39) HIVES penicillin V Allergy (Unknown, Verified 11/19/24 13:39) Hives Penicillins [PENICILLINS] Allergy (Unknown, Verified 11/19/24 13:39) HIVES sertraline [From Zoloft] Adverse Reaction (Unknown, Verified 11/19/24 13:39) Nausea Medication List - Last Reconciled 11/19/24 by Yung Chen MD dextroamphetamine-amphetamine 20 mg ER (Adderall XR) 20 mg PO DAILY levocetirizine (Xyzal) 5 mg PO DAILY triamcinolone acetonide (Nasacort) 2 sprays intranasal DAILY HPI Comments Details: 24-year-old male patient presenting for evaluation of several enlarged cervical lymph nodes 1st noted by the patient several months ago. He denied any pain, skin change, redness or discharge associated with the palpable lumps. He also noted several groin lymph nodes which were also asymptomatic. He denies fever, chills, night sweats, weight loss, anorexia, or other generalized symptoms. He underwent evaluation with an ultrasound which confirmed a moderately enlarged lymph node without any suspicious findings noted. 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 He underwent an ultrasound-guided lymph node biopsy on 10/23/2024. Pathology revealed small lymphocytes with scant cytoplasm. Flow cytometry was negative. A copy of the report was provided with the patient. In general he feels well and denies any new symptoms. [facility] Surgical History Hx of appendectomy Hx of hernia repair Social History Housing: House Patient Tobacco Use Status: Never used Tobacco e-Cigarette/Vaping Use: Former Use service: No Current occupational status: employed Current occupation: [employer] Current occupational exposures/hazards: No Cognitive needs: No Hearing needs: No Vision needs: No Review of Systems Const All systems reviewed & are unremarkable except as noted in HPI and below Physical Exam Vital Signs: Last Vital Signs Pulse 72 11/19/24 13:39 Resp 16 11/19/24 13:39 BMI result Body Mass Index 31.5 Const General: no acute distress Nutritional Appearance: well nourished Orientation/consciousness: patient oriented x3 HEENT Head: Yes normocephalic and Yes atraumatic Ears: hearing grossly normal bilaterally Teeth and gingiva: dentition normal Resp Effort & Inspection: normal respiratory effort, no audible wheezes, no cough and no respiratory distress GI Inspection: Yes normal to inspection Skin General skin exam: no rashes or lesions noted Neuro General: patient oriented x3 Extrem General: Yes no clubbing, cyanosis or edema Assessment & Plan Assessment & Plan (1) Swollen lymph nodes: Code(s): R59.9 - Enlarged lymph nodes, unspecified Category: Medical Plan 24-year-old male patient presenting with several enlarged lymph nodes in the bilateral cervical regions. The nodes are fairly small but have persisted and remained relatively asymptomatic. He is experiencing no B symptoms. He underwent ultrasound-guided core biopsy on 10/23/2024. Pathology revealed benign findings with normal flow cytometry. No surgical intervention is recommended at this time. He is welcome to call should he develop any concerning changes. Coding Level of Care Code Est Pt Level 3 (90657) Diagnoses Swollen lymph nodes R59.9
[2024-11-19 13:39] VITALS: PULSE 72; RESP 16; BMI 31.5
--- OUTSIDE RECORDS SUMMARY | 2024-11-19 16:07 | XMS_ITS | Encounter Summary ---
Author Organization [facility] Address [address] [place] [address] Phone Care Team Providers Care Check Writing Machine Operator Name Role Phone eKith Hester MD Primary Care Provider Encounter Details Date Type Department Care Team (Late st Contact Info) Description 04/18/2011 Conversion Encounter [facility] [address] [place] [address] Social History Tobacco Use Types Packs/Day Years [...] on filedocumented in this encounter Care Teams Check Writing Machine Operator Relationship Specialty Start Date End Date Keith Hester MD [facility] [place] [address] PCP - General Pediatrics 10/21/18 documented as of this encounter
--- OUTSIDE RECORDS SUMMARY | 2024-11-19 16:07 | XMS_ITS | Clinical Summary ---
Author Organization [facility] Address [address] [place] [phone] Phone Care Team Providers Care Route Aide Name Role Phone Keith Hester MD Primary [...] with this medication regularly. Follow up at [facility] in April. Assessment & Plan (01/04/2020 5:13 [...] work day. Follow up in April at [facility]. Assessment & Plan (10/22/2018 4:38 PM EST): [...] Follow back up with Dr. Owens at [facility] concerning low back pain (L5- S1 [...] patient's age to complete this topic [place] [address] [place] [address] FEDERAL Care Teams Route Aide Relationship Specialty Start Date End Date Keith Hester MD [address] [place] [address] PCP - General Pediatrics 10/21/18
== END 2024-11-19 13:47 | disposition home or self-care (01) ==
LOC: HO.HGS 13:34
PROVIDERS: PCP Physician Assistant; Visit Provider Surgery
DX: R59.9 Enlarged lymph nodes, unspecified (principal)
CPT/HCPCS: 99213

== ENCOUNTER → 2024-11-19 13:33 | Outpatient (BNVA) | payer OTHER, SELFPAY | PROVIDERS: PCP Physician Assistant; Visit Provider Surgery ==

== ENCOUNTER 2025-02-03 15:36 | Outpatient (AMB) | payer OTHER, SELFPAY ==
--- NOTE | 2025-02-03 15:32 | MHC.PC.OV ---
Intake Visit Reasons: ENT referral Allergies amoxicillin [AMOXICILLIN] Allergy (Unknown, Verified 11/19/24 13:39) HIVES azithromycin [From ZITHROMAX] Allergy (Unknown, Verified 11/19/24 13:39) HIVES penicillin V Allergy (Unknown, Verified 11/19/24 13:39) Hives Penicillins [PENICILLINS] Allergy (Unknown, Verified 11/19/24 13:39) HIVES sertraline [From Zoloft] Adverse Reaction (Unknown, Verified 11/19/24 13:39) Nausea Medication List - Last Reconciled 02/03/25 by Sharee Pacheco PA-C dextroamphetamine-amphetamine 20 mg ER (Adderall XR) 20 mg PO DAILY levocetirizine (Xyzal) 5 mg PO DAILY triamcinolone acetonide (Nasacort) 2 sprays intranasal DAILY Tobacco use date assessed: 02/03/25 Dental Screening Dental Screen Date: 02/03/25 Did you have a dental visit in the last 12 months?: Yes Did you have a dental problem in the last 6 months where you did not have access to dental care?: No Was dental information given to patient?: Patient has dentist HPI ENT referral HPI Details Patient is a 24-year-old male who presents today with complaints of ongoing sinus pain and brain fog. When I 1st saw him in the fall he had gone to the emergency room with these concerns and did have a head CT which was negative. He thought maybe it was all related to sinus congestion. He was prescribed at that point an antihistamine and nasal spray which she felt like worse somewhat effective but then ultimately stopped being effective. He states that now he thinks he should just see an ear nose and throat doctor because every day he has this constant pain and pressure behind his eyes, between his eyes and in his maxillary area. He states it almost feels like he has a constant head cold or sinus infection without any runny nose or stuffy nose. He does have ongoing cervical lymphadenopathy and did see General surgery for this. He states that he was told it was just reactive lymph nodes but to what he has no idea. He states that he is sick of feeling like this. The bright light makes it worse. He states that he does have photosensitivity and at times it can trigger the headache and sinus pain. He has pain almost every day. When the pain is there he states he just feels very spacey and like he has brain fog in his forgetting things. Over the last couple of months he states it has gotten a bit worse. No nausea, vomiting or dizziness. He is now getting ringing in his ears associated with the some Tums. [facility] Surgical History Hx of appendectomy Hx of hernia repair Social History (Updated 02/03/25 @ 15:34 by Gayatri Alcantara CMA) Housing: House Alcohol intake: current Patient Tobacco Use Status: Never used Tobacco e-Cigarette/Vaping Use: Former Use Use of substances other than those prescribed or required for medical reasons: No service: No Current occupational status: employed Current occupation: [employer] Current occupational exposures/hazards: No Cognitive needs: No Hearing needs: No Vision needs: No Questionnaire Thrive Questionnaire Date Thrive assessed: 06/03/24 AUDIT C Alcohol Use Questionnaire (AUDIT-C) 1. How often do you have a drink containing alcohol?: Monthly or less 2. How many drinks containing alcohol do you have on a typical day when you are drinking?: 1 or 2 3. How often do you have six or more drinks on one occasion?: Never Total Score: 1 FRANTZ-7 AMB Questionnaire FRANTZ-7 Date FRANTZ - 7 assessed: 04/03/24 Source: Developed by Drs. Billy Mckeon, Cynthia Goldsmith, Scott Doan and colleagues, with an educational anish from [employer]. Physical exam (Primary Care) Tobacco/Smoking Status: Tobacco use Status Tobacco use date assessed 02/03/25 02/03/25 15:34 Patient Tobacco Use Status Never used Tobacco 02/03/25 15:34 e-Cigarette/Vaping Use Former Use 02/03/25 15:34 Thrive Assessment: Date of Thrive Assessment Date Thrive assessed 06/03/24 02/03/25 15:34 Telehealth Telehealth Telehealth Platform: Telephone Location of provider rendering services: practice address Location of patient: address on file Patient Identification confirmed using: Name, : Yes Telehealth method: voice only Patient verbally consented to treatment: Yes Patient verbally consented to billing insurance company: Yes Patient informed of any privacy concerns related to visit: Yes Minutes spent on Phone/Video with Pt.: 17 Coding Level of Care Code Tele Est Pt Level 3 (07998) Diagnoses Sinus congestion R09.81 Cervical lymphadenopathy R59.0 Brain fog R41.89 New daily persistent headache G44.52 Assessment & Plan Assessment & Plan (1) Sinus congestion: Code(s): R09.81 - Nasal congestion Category: Medical Plan: Sinus CT ordered Referral to ENT (2) Cervical lymphadenopathy: Code(s): R59.0 - Localized enlarged lymph nodes Category: Medical Plan: Had a negative biopsy Referral to Allergy and immunology (3) Brain fog: Code(s): R41.89 - Other symptoms and signs involving cognitive functions and awareness Category: Medical Plan: Labs ordered. Brain MRI ordered. (4) New daily persistent headache: Code(s): G44.52 - New daily persistent headache (NDPH) Category: Medical Plan: As above. Did discuss possibility of follow up with Neurology. Orders: Orders CT sinus wo IV con Today R09.81 - Nasal congestion, R59.0 - Localized enlarged lymph nodes Complete Blood Count Auto Diff Today R09.81 - Nasal congestion, R59.0 - Localized enlarged lymph nodes TSH reflex Free T4 Today R09.81 - Nasal congestion, R59.0 - Localized enlarged lymph nodes Comprehensive Mentor. Panel Fast Today R09.81 - Nasal congestion, R59.0 - Localized enlarged lymph nodes MR head/brain wo con Today G44.52 - New daily persistent headache (NDPH), R41.89 - Other symptoms and signs involving cognitive functions and awareness Referrals Ear/Nose/Throat Referral R09.81 - Nasal congestion, R59.0 - Localized enlarged lymph nodes Allergy & Immunology Referral R09.81 - Nasal congestion, R59.0 - Localized enlarged lymph nodes
--- OUTSIDE RECORDS SUMMARY | 2025-02-03 15:44 | XMS_ITS | Encounter Summary ---
Author Organization [facility] Address [address] [place] [address] Phone Care Team Providers Care Bronze Chaser Name Role Phone Keith Hester MD Primary Care Provider [phone] Encounter Details Date Type Department Care Team (Late st Contact Info) Description 04/18/2011 Conversion Encounter [facility] [address] [place] [address] Social History Tobacco Use Types Packs/Day Years [...] on filedocumented in this encounter Care Teams Bronze Chaser Relationship Specialty Start Date End Date Keith Hester MD [facility] [place] [address] PCP - General Pediatrics 10/21/18 documented as of this encounter
== END 2025-02-03 16:11 | disposition home or self-care (01) ==
LOC: HO.HMCFM 15:36
PROVIDERS: PCP Physician Assistant; Visit Provider Physician Assistant
DX: R09.81 Nasal congestion (principal); R59.0 Localized enlarged lymph nodes; R41.89 Other symptoms and signs involving cognitive functions and awareness; G44.52 New daily persistent headache (NDPH)

== ENCOUNTER → 2025-02-03 15:36 | Outpatient (BNVA) | payer OTHER, SELFPAY | PROVIDERS: PCP Physician Assistant; Visit Provider Physician Assistant ==

== ENCOUNTER 2025-02-07 19:25 | Outpatient (REF) | payer OTHER, SELFPAY ==
--- NOTE | ~2025-02-07 | MR_ITS ---
CLINICAL HISTORY: G44.52 - New daily persistent headache (NDPH) MR Brain without gadolinium Comparison: OT - MR HEAD/BRAIN WO CON - 02/07/25 20:05 EDT Findings: No restricted diffusion. No intra-axial mass or hemorrhage. No midline shift. No hydrocephalus. Vascular flow voids are intact. Orbital contents are unremarkable. The sinuses and mastoid air cells are clear. No focal bone lesion. IMPRESSION: Unremarkable brain MRI. This document has been electronically signed by: Nataly Segovia MD on 02/08/2025 15:55:08
--- OUTSIDE RECORDS SUMMARY | 2025-02-07 19:28 | XMS_ITS | Encounter Summary ---
Author Organization [facility] Address [address] [place] [address] Phone Care Team Providers Care Surgical Manager Name Role Phone Keith Hester MD Primary Care Provider Encounter Details Date Type Department Care Team (Late st Contact Info) Description 04/18/2011 Conversion Encounter [facility] [address] [place] [address] Social History Tobacco Use Types Packs/Day Years [...] on filedocumented in this encounter Care Teams Surgical Manager Relationship Specialty Start Date End Date Keith Hester MD [facility] [place] [address] PCP - General Pediatrics 10/21/18 documented as of this encounter
== END 2025-02-07 19:26 | disposition home or self-care (01) ==
LOC: HO.MRI 19:25
PROVIDERS: PCP Physician Assistant; Visit Provider Physician Assistant
DX: G44.52 New daily persistent headache (NDPH) (principal); R41.89 Other symptoms and signs involving cognitive functions and awareness
CPT/HCPCS: 70551

== ENCOUNTER → 2025-02-07 19:34 | Outpatient (BNV) | payer OTHER, SELFPAY | PROVIDERS: PCP Physician Assistant; Visit Provider Radiology Diagnostic Radiology | DX: G44.52 New daily persistent headache (NDPH) (principal) | CPT/HCPCS: 70551 ==

== ENCOUNTER 2025-05-13 11:17 | Outpatient (AMB) | payer OTHER, SELFPAY ==
[2025-05-13 11:25] VITALS: BP 108/76; PULSE 81; RESP 14; O2SAT 98; BMI 32.5
--- NOTE | 2025-05-13 11:25 | MHC.PC.OV ---
Vital Signs 05/13/25 11:25 Height 5 ft 6 in Weight 201 lb 6 oz BMI 32.5 BP 108/76 Blood Pressure Location Rt brachial Position Sitting Respiration 14 Pulse 81 Pulse Source Pulse Oximeter Pulse Oximetry (%) 98 Oxygen Delivery Method Room Air Intake Visit Reasons: cpe Intake Note: Physical Chemist Proteins Required: No Allergies amoxicillin (AMOXICILLIN) Allergy (Unknown, Verified 05/13/25 11:26) HIVES azithromycin (From ZITHROMAX) Allergy (Unknown, Verified 05/13/25 11:26) HIVES penicillin V Allergy (Unknown, Verified 05/13/25 11:26) Hives Penicillins (PENICILLINS) Allergy (Unknown, Verified 05/13/25 11:) HIVES sertraline (From Zoloft) Adverse Reaction (Unknown, Verified 05/13/25 11:) Nausea Medication List - Last Reconciled 05/13/25 by Sharee Pacheco PA-C dextroamphetamine-amphetamine 20 mg ER (Adderall XR) 20 mg PO DAILY levocetirizine (Xyzal) 5 mg PO DAILY triamcinolone acetonide (Nasacort) 2 sprays intranasal DAILY Tobacco use date assessed: 05/13/25 Dental Screening Dental Screen Date: 02/03/25 HPI cpe HPI Details Pt is a 25 y/o male who presents today for a physical exam. Psych: Follows with psychiatry for his ADHD. msk: left anterior knee pain for years that worsened sometimes it is physical activity. He states sometimes it feels like it gets a little swollen. No injury but did previously play football and wonders if it was caused by his contact sports. It just worsens when he does a lot of stairs at the gym. neuro: still getting daily bouts of brain fog, forgetfulness, and feeling episodes of disassociation without any sinus pain or pressure. He states all of his sinus congestion has a for the last year he has been struggling with brain fog and feelings of this association and has noticed that it happens every day with some severe symptoms occurring a couple times a week. He states usually only lasts a few minutes and then on days that it feels more severe it can last hours. He sleeps through the night. No longer having any headaches. He did have an MRI in January which is normal. HEENT: Has seen Allergy and immunology and does report multiple environmental allergies. Congestion is improved with the Xyzal and Nasacort. [facility] Surgical History Hx of appendectomy Hx of hernia repair Social History (Updated 02/03/25 @ 15:34 by Gayatri Alcantara CMA) Housing: House Alcohol intake: current Patient Tobacco Use Status: Never used Tobacco e-Cigarette/Vaping Use: Former Use service: No Current occupational status: employed Current occupation: [employer] Current occupational exposures/hazards: No Cognitive needs: No Hearing needs: No Vision needs: No Questionnaire PHQ-9 Over the last 2 weeks, how often have you been bothered by any of the following problems? 1. Little interest or pleasure in doing things: several days 2. Feeling down, depressed, or hopeless: several days 3. Trouble falling or staying asleep, or sleeping too much: several days 4. Feeling tired or having little energy: several days 5. Poor appetite or overeating: several days 6. Feeling bad about yourself - or that you are a failure or have let yourself or your family down: not at all 7. Trouble concentrating on things, such as reading the newspaper or watching television: several days 8. Moving or speaking so slowly that other people could have noticed. Or the opposite - being so fidgety or restless that you have been moving around a lot more than usual: not at all 9. Thoughts that you would be better off or of hurting yourself in some way: not at all Total score: 6 Depression Screening Interpretation: Positive Depression Screening Follow-up: Community Mental Health Worker F/U and Declines treatment Depression Screening Done: Yes 03775 - PHQ-9 Billing: Yes Source: Developed by Drs. Billy Mckeon, Cynthia Goldsmith, Scott Doan and colleagues, with an educational anish from [employer]. Thrive Questionnaire Date Thrive assessed: 06/03/24 I am a: Patient What is your living situation today?: I have a steady place to live Within the past 12 months, did the food you bought not last and you didn't have the money to get more?: Never true Within the past 12 months, did you worry whether your food would run out before you got money to buy more?: Never true Do you have trouble paying for medicines?: No Do you have trouble getting transportation to medical appointments?: No Do you have trouble paying your heating and electricity bill?: No Do you have trouble taking care of your child, family member or friend?: No Do you have trouble with day-to-day activities such as bathing, preparing meals, shopping, managing finances, etc.?: No Are you currently unemployed and looking for a job?: No Are you interested in more education?: No Please select the resources that you would like help with: None Currently or been in a relationship where the following occur: No concerns reported THRIVE Score: 0 AUDIT C Alcohol Use Questionnaire (AUDIT-C) 1. How often do you have a drink containing alcohol?: Monthly or less 2. How many drinks containing alcohol do you have on a typical day when you are drinking?: 3 or 4 3. How often do you have six or more drinks on one occasion?: Less than monthly Total Score: 3 FRANTZ-7 AMB Questionnaire FRANTZ-7 Date FRANTZ - 7 assessed: 04/03/24 Feeling nervous, anxious, or on edge: 1 = Several days Not being able to stop or control worryin = Several days Worrying too much about different things: 1 = Several days Trouble relaxin = Not at all Being so restless that it is hard to sit still: 0 = Not at all Becoming easily annoyed or irritable: 1 = Several days Feeling afraid as if something awful might happen: 0 = Not at all Total FRANTZ-7 score (0-4 normal; 5-9 mild; 10-14 moderate; 15-21 severe): 4 Source: Developed by Drs. Billy Mckeon, Cynthia Goldsmith, Scott Doan and colleagues, with an educational anish from [employer]. FRANTZ-7 Assessment Billing FRANTZ-7 Assessment Tool: FRANTZ-7 Assessment 13814 Physical exam (Primary Care) Vital Signs: Last Vital Signs Pulse 81 05/13/25 11:25 Resp 14 05/13/25 11:25 BP 108/76 05/13/25 11:25 Pulse Ox 98 05/13/25 11:25 Oxygen Delivery Method Room Air 05/13/25 11:25 BMI result Body Mass Index 32.5 Tobacco/Smoking Status: Tobacco use Status Tobacco use date assessed 05/13/25 05/13/25 11:30 Patient Tobacco Use Status Never used Tobacco 05/13/25 11:27 e-Cigarette/Vaping Use Former Use 05/13/25 11:27 PHQ-9: PHQ-9 Score PHQ-9: Total score 6 05/13/25 11:27 Depression Screening Interpretation: Positive Depression Screening Follow-up: Community Mental Health Worker F/U and Declines treatment Thrive Assessment: Date of Thrive Assessment Date Thrive assessed 06/03/24 05/13/25 11:27 Currently or been in a relationship where the following occur: No concerns reported Const Orientation/consciousness: patient oriented x3 HENMT Ears: hearing grossly normal bilaterally and TM's normal bilaterally General nose exam: No nasal polyps present Face and sinus: Yes sinuses nontender Mouth: Normal oral and palatal mucosa present Eyes Pupils: Equal, round and reactive pupils present EOM: EOMs intact bilaterally Neck Neck: Yes full ROM and Yes no lymphadenopathy Thyroid: Thyroid normal Chest Chest palpation & inspection: normal inspection of the chest Resp Auscultation: clear to auscultation bilaterally Cardio Rate: regular rate Rhythm: regular rhythm Heart sounds: S1 normal heart sound present and S2 normal heart sound present Peripheral pulses: Peripheral pulses 2+ throughout GI Other: Soft, nontender Auscultation: normal bowel sounds Rectal Exam - Male: Yes deferred General: Yes no CVA tenderness Back/Spine/Pelvis Other: Nontender Back: no CVA tenderness Skin General skin exam: no rashes or lesions noted Neuro General: patient oriented x3, gait normal, CN's II-XI intact bilaterally and deep tendon reflexes 2+ bilaterally Cranial nerves: Yes Equal, round and reactive pupils present Motor exam (neuro): 5/5 motor strength present throughout Sensory Exam: double simultaneous stimulation for sensation normal Coordination: [id number] test normal and Romberg test negative Extrem General: Yes normal to inspection and Yes full ROM Psych Affect: normal affect Attitude: cooperative Thought process: Normal thought process present Thought content: Normal thought content present Insight: Good insight present (Psych) Judgement: Good judgement present (Psych) Coding Level of Care Code Est Pt Prev Care 18-39y(20922) Diagnoses Routine general medical examination at a health care facility Z00.00 Brain fog R41.89 Memory changes R41.3 Left knee pain M25.562 Additional Codes PHQ-9 - 34678 - PHQ-9 Billing: Yes ([id number]) FRANTZ-7 Assessment Billing - FRANTZ-7 Assessment Tool: FRANTZ-7 Assessment [id number] ([id number]) Assessment & Plan Assessment & Plan (1) Routine general medical examination at a health care facility: Code(s): Z00.00 - Encounter for general adult medical examination without abnormal findings Plan: Health maintenance reviewed. Labs ordered and reviewed. (2) Brain fog: Code(s): R41.89 - Other symptoms and signs involving cognitive functions and awareness Category: Medical Plan: Referral to neuro (3) Memory changes: Code(s): R41.3 - Other amnesia Category: Medical Plan: As above (4) Left knee pain: Code(s): M25.562 - Pain in left knee Plan: X-ray ordered. We will follow up pending test results Orders: Orders XR knee LT 2V Today M25.561 - Pain in right knee, M25.562 - Pain in left knee Referrals Neurology Referral R41.3 - Other amnesia, R41.89 - Other symptoms and signs involving cognitive functions and awareness
--- OUTSIDE RECORDS SUMMARY | 2025-05-13 15:35 | XMS_ITS | Clinical Summary ---
Author Organization [facility] Address [address] [place] [id number] Phone Care Team Providers Care Gis Database Administrator Name Role Phone Keith Hester MD Primary [...] with this medication regularly. Follow up at [facility] in April. Assessment & Plan [...] work day. Follow up in April at [facility]. Assessment & Plan (10/22/2018 4:38 [...] EDT): DOS 05/11/21 Provider: Jose Connolly PA-C Cc: right ankle pain Xrays ordered Diagnosis: Ceballos C distal fibular fx Plan: -surgery to repair w Dr. Au [...] Follow back up with Dr. Owens at [facility] concerning low back pain (L5- S1 [...] ped/adol 1998,1998,1998 Hib (PRP-T) 06/02/1999, 9,1998,05/03 IPV 03/25/2003,199 9,1998,05/03 Influenza, injectable, trivalent 09/19/2012 Influenza, injectable, [...] 73 04/21/2021 4:12 PM EDT Temperature 36.6 C (97.8 F) 12/20/2021 3:18 PM EDT Respiratory Rate - - Oxygen Saturation - [...] 2-dose series) 2011 03/02/1999 Influenza Vaccines (#1) 2025 09/19/2012, 05/30 COVID-19 Vaccine (3 - season) 2025 10/03/2021, 09/05/2021 DTaP,Tdap,and Td Vaccines (8 - [...] patient's age to complete this topic [place] [address] [place] [address] [employer] Care Teams Gis Database Administrator Relationship Specialty Start Date End Date Keith Hester MD [facility] [place] [address] PCP - General Pediatrics 10/21/18
--- OUTSIDE RECORDS SUMMARY | 2025-05-13 15:35 | XMS_ITS | Encounter Summary ---
Author Organization [facility] Address [address] [place] [phone] Phone Care Team Providers Care Arc Air Operator Name Role Phone Keith Hester MD Primary Care Provider Encounter Details Date Type Department Care Team (Late st Contact Info) Description 04/18/2011 Conversion Encounter [facility] [address] [place] [address] Social History Tobacco Use Types Packs/Day Years [...] on filedocumented in this encounter Care Teams Arc Air Operator Relationship Specialty Start Date End Date Keith Hester MD [facility] [place] [address] PCP - General Pediatrics 10/21/18 documented as of this encounter
== END 2025-05-13 11:54 | disposition home or self-care (01) ==
LOC: HO.HMCFM 11:18
PROVIDERS: PCP Physician Assistant; Visit Provider Nurse Practitioner Family
DX: Z00.00 Encounter for general adult medical examination without abnormal findings (principal); R41.89 Other symptoms and signs involving cognitive functions and awareness; R41.3 Other amnesia; M25.562 Pain in left knee

== ENCOUNTER → 2025-05-13 11:17 | Outpatient (BNVA) | payer OTHER, SELFPAY | PROVIDERS: PCP Physician Assistant; Visit Provider Nurse Practitioner Family | DX: Z00.01 Encounter for general adult medical examination with abnormal findings (principal); R41.89 Other symptoms and signs involving cognitive functions and awareness; R41.3 Other amnesia; M25.562 Pain in left knee; F90.9 Attention-deficit hyperactivity disorder, unspecified type; Z13.31 Encounter for screening for depression | CPT/HCPCS: 96127 ==